=== PATIENT | female | born 1995 | race Caucasian/White ===

== ENCOUNTER 2023-03-23 20:09 | Outpatient (REF) | payer BC, OTHER, SELFPAY ==
[2023-03-29 14:18] LABS: Age Gdln ACOG Testing Note (.); IGP, rfx Aptima HPV ASCU Note (.)
== END 2023-03-23 20:10 | disposition home or self-care (01) ==
LOC: LAB 20:09
PROVIDERS: Visit Provider Obstetrics & Gynecology
DX: Z01.419 Encounter for gynecological examination (general) (routine) without abnormal findings (principal)
CPT/HCPCS: G0145

== ENCOUNTER 2023-05-13 08:50 | Outpatient (OUT) | payer BC, OTHER, SELFPAY | END 2023-05-13 08:51 | disposition home or self-care (01) | LOC: PST 08:53 | PROVIDERS: Visit Provider Obstetrics & Gynecology | DX: Z01.818 Encounter for other preprocedural examination (principal); N80.9 Endometriosis, unspecified; R10.2 Pelvic and perineal pain; N94.10 Unspecified dyspareunia ==

== ENCOUNTER 2023-05-20 07:26 | Day surgery (SDC) | payer BC, OTHER, SELFPAY ==
[2023-05-13 09:17] VITALS: BP 103/69; PULSE 95; RESP 14; TEMP 36.4; O2SAT 100; BMI 17.4
[2023-05-20] VITALS (18 sets, daily range): BP systolic 92–117; BP diastolic 61–79; PULSE 62–98; RESP 10–20; TEMP 36.4–36.9; O2SAT 96–100
[2023-05-20 07:42] LABS: Basophils Absolute Auto 0.1 10^3/uL (0.0-0.1); Basophils Percent Auto 1.1 % (0.2-2.0); Eosinophils Absolute Auto 0.4 10^3/uL (0.0-0.7); Eosinophils Percent Auto 6.7 % (0.9-7.0); Hematocrit 42.2 % (36.0-48.0); Hemoglobin 14.6 g/dL (12.0-16.0); Immature Granulocytes Abs Auto 0.01 10^3/uL (0.00-0.03); Immature Granulocytes Pct Auto 0.2 % (0.0-0.5); Lymphocytes Absolute Auto 1.9 10^3/uL (1.2-3.8); Lymphocytes Percent Auto 29.7 % (20.5-60.0); Mean Corpuscular HGB Conc 34.6 g/dL (29.9-35.2); Mean Corpuscular Hemoglobin 31.6 pg (26.7-34.0); Mean Corpuscular Volume 91.3 fL (81.0-99.0); Mean Platelet Volume 9.4 fL (9.5-13.5); Monocytes Absolute Auto 0.4 10^3/uL (0.3-0.8); Monocytes Percent Auto 6.5 % (1.7-12.0); Neutrophils Absolute Auto 3.5 10^3/uL (1.4-6.5); Neutrophils Percent Auto 55.8 % (43.0-75.0); Platelet Count 247 10^3/uL (150-450); Red Blood Count 4.62 10^6/uL (4.20-5.40); Red Cell Distribution Width 11.9 % (11.0-15.0); White Blood Count 6.3 10^3/uL (4.0-11.0)
[2023-05-20] MEDS: LACTATED RINGER'S SOLUTION 1,000 ML 50 ML IV (07:57)
[2023-05-20 08:09] LABS: HCG Quantitative <1 mIU/mL
--- NOTE | 2023-05-20 10:12 | P.ON_ITS ---
Brief Operative Note Date of procedure: 05/20/23 Pre-op diagnosis: pelvic pain Post-op diagnosis: same as pre-op Procedure: NAME OF PROCEDURE: [diagnostic laparoscopy ] PROCEDURE: The patient was taken back to the Operating Room where she was placed in dorsal lithotomy position after given general anesthesia. The patient was prepped and draped in normal sterile fashion. A sponge stick was placed into the patient's vagina. Attention was turned to the patient's abdomen, where a small umbilical incision was made. The fascia was tented using Florinda clamps and the fascia was entered sharply. Confirmation of intraabdominal placement of the 10 mm port was confirmed under direct visualization using a laparoscope. The patient's abdomen was then insufflated using CO2 gas with approximately 4 liters. A second port was placed left laterally, this was done under direct visualization with a 5 mm port. Survey of the patient's abdomen demonstrated normal liver and gallbladder. Survey of the patient's pelvic anatomy demonstrated normal appearing rt and lt ovary and tubes as well as normal appearing uterus. No endometrial implants could be noted, no evidence of any pelvic disease was seen, normal appearing pelvic cavity. All instruments were removed from the patient's abdomen. The patient's abdomen was deinsufflated of CO2 gas. The patient tolerated the procedure well. Sponge stick was removed from the patient's vagina. The maddie ent's infraumbilical fascia was closed using #0 Vicryl on a GI needle. The patient's skin was closed laterally and infraumbilically using 4-0 Vicryl. The patient tolerated the procedure well. Sponge, lap and needle counts were correct x 2. The patient was taken to Recovery Room in stable condition.Clips from prior surgery noted adhered to bladder, the clips were grasped and gently removed Anesthesia: KENYA Surgeon: Tony Brennan Student Outreach Coordinator: Hilda Ellison Estimated blood loss (mL): 5 Pathology: none sent Condition: stable Disposition: PACU
[2023-05-20] MEDS: HYDROCODONE/ACET 5-325 MG TABLET 1 TAB PO (10:37)
[2023-05-20] MEDS: HYDROMORPHONE HCL 0.5 MG/0.5 ML SYRINGE IV ×2 (10:46→10:56)
[2023-05-20] MEDS: LACTATED RINGER'S SOLUTION 1,000 ML 150 ML IV (12:10)
--- NOTE | 2023-05-20 12:18 | PC.NURSE ---
Patient upto BR and voids a few drops of urine. New bag of IV fluid hung.
== END 2023-05-20 12:37 | disposition home or self-care (01) ==
LOC: SURGOUT 07:26
PROVIDERS: Visit Provider Obstetrics & Gynecology
PROC: (CPT 840; principal; 2023-05-20 08:40)
DX: R10.2 Pelvic and perineal pain (principal); N80.9 Endometriosis, unspecified; N94.10 Unspecified dyspareunia
CPT/HCPCS: 49320; 36415; 84702; 85025; J1170; J2704

== ENCOUNTER 2024-03-26 20:18 | Outpatient (REF) | payer BC, SELFPAY ==
[2024-03-30 16:10] LABS: Age Gdln ACOG Testing Note (.); HPV Aptima Negative (Negative); IGP, Aptima HPV, rfx 16/18,45 Note (.)
== END 2024-03-26 20:19 | disposition home or self-care (01) ==
LOC: LAB 20:18
PROVIDERS: Visit Provider Obstetrics & Gynecology
DX: Z01.419 Encounter for gynecological examination (general) (routine) without abnormal findings (principal)
CPT/HCPCS: 88175

== ENCOUNTER 2025-05-27 13:23 | Outpatient (REF) | payer BC, SELFPAY ==
--- OUTSIDE RECORDS SUMMARY | 2025-05-27 09:50 | XMS_ITS | Encounter Summary ---
Author Organization [facility] Address [address] [place] [address] Care Team Providers Care Livestock Judging Coach Name Role Phone Unavailable Primary Care Provider Unavailabl e Reason for Visit * Reason Comments Gynecologic Exam Encounter Details Date Type Department Care Team (Late st Contact Info) Description 05/27/2025 9:50 AM EDT Office Visit [facility] [place] [facility] [address] [facility] [place] [phone] Tony Brennan DO [address] [facility] [place] [address] Well woman exam with routine gynecological exam; Mood changes Social History Tobacco Use Types Packs/Day Years Used Date Smoking Tobacco: Never Alcohol Use Standard Drinks/Week Comments Never 0 (1 standard drink = 0.6 oz pur e alcohol) Caffeine: 2-3 cups/day soda Comments No Sex and Gender Information Value Date Recorded Sex Assigned at Not on file Legal Sex Female 6:36 PM EDT Gender Identity Not on file Sexual Orientation Not on file documented as of this encounter Last Filed Vital Signs Vital Sign Reading Time Taken Comments Blood Pressure 98/58 05/27/2025 10:20 AM EDT Pulse - - Temperature - - Respiratory Rate - - Oxygen Saturation - - Inhaled Oxygen Concentration - - Weight 46.3 kg (102 lb) 05/27/2025 10:20 AM EDT Height - - Body Mass Index 19.27 01/28/2025 9:20 AM EDT documented in this encounter Progress Notes * Eloise Cruz NP - 05/27/2025 9:50 AM EDT Reason for Appointment: Patient ID: Leonor Villa is a 29 y.o. female who presents for Gynecologic Exam Patient presents today for Annual Exam. MEDICATIONS Current Outpatient Medications Medication Instructions citalopram (CELEXA) 20 mg, Oral, Daily ISOtretinoin (Accutane) 40 MG capsule spironolactone (ALDACTONE) 50 mg, Daily ALLERGIES Allergies[1] PROBLEMS Active Ambulatory Problems Diagnosis Date Noted Well woman exam with routine gynecological exam 03/26/2024 Mood changes 03/26/2024 Other acne 03/26/2024 Resolved Ambulatory Problems Diagnosis Date Noted No Resolved Ambulatory Problems Past Medical History: Diagnosis Date Abnormal Pap smear of cervix Benign cyst of left kidney Endometriosis Ovarian cyst Urinary tract infection HISTORY PAST MEDICAL HISTORY SOCIAL HISTORY Medical History[2] Social History Tobacco Use Smoking status: Never Smokeless tobacco: Not on file Substance Use Topics Alcohol use: Never Comment: Caffeine: 2-3 cups/day soda Drug use: Never FAMILY HISTORY Family History[3] SURGICAL HISTORY Surgical History[4] REVIEW OF SYSTEMS Review of Systems: Review of Systems Constitutional: Negative. HENT: Negative. Eyes: Negative. Respiratory: Negative. Cardiovascular: Negative. Gastrointestinal: Negative. Genitourinary: Negative. Musculoskeletal: Negative. Skin: Negative. Neurological: Negative. All other systems reviewed and are negative. Hematological: Negative. Endocrine: Negative. Allergic/Immunologic: Negative. OBJECTIVE Objective: Physical Exam Constitutional: Appearance: Normal appearance. She is well-developed. Genitourinary: Vulva normal. Breasts: Breasts are soft. Right: Normal. Left: Normal. Cardiovascular: Rate and Rhythm: Normal rate and regular rhythm. Pulmonary: Effort: Pulmonary effort is normal. Breath sounds: Normal breath sounds. Abdominal: General: Bowel sounds are normal. There is no distension. Palpations: Abdomen is soft. Tenderness: There is no abdominal tenderness. There is no guarding or rebound. Musculoskeletal: General: No swelling. Normal range of motion. Right lower leg: No edema. Left lower leg: No edema. Neurological: Mental Status: She is alert and oriented to person, place, and time. Skin: General: Skin is warm and dry. Psychiatric: Mood and Affect: Mood normal. Behavior: Behavior normal. Vitals and nursing note reviewed. Exam conducted with a cumulative effects analyst present. Vitals: Estimated body mass index is 19.27 kg/m?? as calculated from the following: Height as of 01/28/25: 5' 1 . Weight as of this encounter: 102 lb. BP: 98/58 No LMP recorded. Assessment/Plan ICD-10-CM 1. Well woman exam with routine gynecological exam Z01.419 Pap Smear HPV DNA probe, amplified 2. Mood changes R45.86 citalopram (CeleXA) 20 MG tablet Annual Exam: Patient presents today for an annual exam. Patient states she is doing well and has no complaints. Pap was obtained without difficulty. Patient reports increased agitation and would like to discuss her Celexa dosing. We will increase the dose to 30 mg and she will reach out to discuss if she is having any further anxiety/agitation. Orders Placed This Encounter Procedures HPV DNA probe, amplified Follow Up: Patient is to return in one year for annual unless needed otherwise. Documented by Eloise Cruz NP on behalf of: Tony Brennan DO [1] No Known Allergies [2] Past Medical History: Diagnosis Date Abnormal Pap smear of cervix Benign cyst of left kidney 2 small cysts on left kidney Endometriosis Ovarian cyst Urinary tract infection [3] Family History Problem Relation Name Age of Onset Sleep apnea Other Diabetes Other Cancer Other No Known Problems Daughter Breast cancer Maternal Grandmother Florina Breast cancer Paternal Grandmother Alexsandra lala Diabetes Paternal Grandmother Alexsandra lala [4] Past Surgical History: Procedure Laterality Date CERVICAL BIOPSY W/ LOOP ELECTRODE EXCISION 09/2016 LEEP LAPAROSCOPY DIAGNOSTIC / BIOPSY / ASPIRATION / LYSIS 05/20/2023 WISDOM TOOTH EXTRACTION wisdom teeth documented in this encounter Miscellaneous Notes * Addendum Note - Emily Monteiro LPN - 05/27/2025 9:50 AM EDTAddended by: EMILY MONTEIRO on: 05/27/2025 12:28 PM Modules accepted: Orders documented in this encounter Plan of Treatment Upcoming Encounters Date Type Department Care Team (Late st Contact Info) Description 06/05/2026 8:30 AM EDT Procedure Visit [facility] [address] [place] [address] [place] [phone] Tony Brennan DO [address] [place] [address] [place] [address] Scheduled Orders Name Type Priority Associated Diagnoses Orde r Schedule Pap Smear Pathology and Cytology Routine Well woman exam with routine gynecological exam Ordered: 05/27/2025 HPV DNA probe, amplified Microbiology Routine Well woman exam with routine gynecological exam Ordered: 05/27/2025 documented as of this encounter Visit Diagnoses Diagnosis Well woman exam with routine gynecological exam Routine gynecological examination Mood changes Unspecified episodic mood disorder documented in this encounter
--- OUTSIDE RECORDS SUMMARY | 2025-05-27 13:28 | XMS_ITS | Encounter Summary ---
Author Organization [facility] Address [address] [place] [address] Care Team Providers Care Photography Colorist Name Role Phone Sharon Moreno MD Primary Care Provider [phone] Source Comments In the event this information is protected by the Federal Confidentiality of Alcohol and Drug AbusePatient Records regulations: The Federal rules restrict any use of the information to criminally investigate or prosecute any alcohol or drug abuse patient.[facility] Encounter Details Date Type Department Care Team (Late st Contact Info) Description 11/25/2018 Patient Msg Radiology [address] [phone] Provider, [facility] Appointment Cancellation Request Social History Tobacco Use Types Packs/Day Years Used Date Smoking Tobacco: Never Smokeless Tobacco: Never Alcohol Use Standard Drinks/Week Comments No 0 (1 standard drink = 0.6 oz pur e alcohol) Comments No Sex and Gender Information Value Date Recorded Sex Assigned at Not on file Legal Sex Female 9:51 AM EST Gender Identity Not on file Sexual Orientation Not on file documented as of this encounter Plan of Treatment Not on file documented as of this encounter Visit Diagnoses Not on filedocumented in this encounter Care Teams Photography Colorist Relationship Specialty Start Date End Date Sharon Moreno MD [address] [place] [address] PCP - General Family Medicine 03/20/14 documented as of this encounter
--- OUTSIDE RECORDS SUMMARY | 2025-05-27 13:28 | XMS_ITS | Encounter Summary ---
Author Organization [facility] Address [address] [place] [address] Care Team Providers Care Press Set Up Person Name Role Phone Clover Hudson MD Primary Care Provider [phone]- [phone] Sharon Moreno MD Primary Care Provider [phone] Source Comments In the event this information is protected by the Federal Confidentiality of Alcohol and Drug AbusePatient Records regulations: The Federal rules restrict any use of the information to criminally investigate or prosecute any alcohol or drug abuse patient.[facility] Encounter Details Date Type Department Care Team (Latest Contact Info) Description 03/05/2003 Prob Sum Review Provider, [facility] Social History Tobacco Use Types Packs/Day Years Used Date Smoking Tobacco: Never Assessed Comments No Sex and Gender Information Value Date Recorded Sex Assigned at Not on file Legal Sex Female 9:51 AM EST Gender Identity Not on file Sexual Orientation Not on file documented as of this encounter Plan of Treatment Not on file documented as of this encounter Visit Diagnoses Not on filedocumented in this encounter Care Teams Press Set Up Person Relationship Specialty Start Date End Date Clover Hudson MD [address] [facility] [address] [id number] PCP - General 08/14/02 03/19/14 Sharon Moreno MD [address] [place] [address] PCP - General Family Medicine 03/20/14 documented as of this encounter
--- OUTSIDE RECORDS SUMMARY | 2025-05-27 13:28 | XMS_ITS | Encounter Summary ---
Author Organization [facility] Address [address] [place] [address] Care Team Providers Care Web Analytics Specialist Name Role Phone Sharon Moreno MD Primary Care Provider [phone] Source Comments In the event this information is protected by the Federal Confidentiality of Alcohol and Drug AbusePatient Records regulations: The Federal rules restrict any use of the information to criminally investigate or prosecute any alcohol or drug abuse patient.[facility] Encounter Details Date Type Department Care Team (Late st Contact Info) Description 11/25/2018 Patient Msg Radiology [address] [phone] Provider, [facility] Appointment Cancellation Request Social History [...] on filedocumented in this encounter Care Teams Web Analytics Specialist Relationship Specialty Start Date End Date Sharon Moreno MD [address] [place] [address] PCP - General Family Medicine 03/20/14 documented as of this encounter
--- OUTSIDE RECORDS SUMMARY | 2025-05-27 13:28 | XMS_ITS | Encounter Summary ---
Author Organization [facility] Address [address] [place] [address] Care Team Providers Care Operations Support Manager Name Role Phone Unavailable Primary Care Provider Unavailabl e Encounter Details Date Type Department Care Team (Late st Contact Info) Description 11/20/2024 Abstract [facility] [address] [place] [phone] William Hollis DO [address] [place] [address] Social History Tobacco Use Types Packs/Day Years [...] as of this encounter Plan of Treatment Upcoming Encounters Date Type Department Care Team (Late st Contact Info) Description 06/05/2026 8:30 AM EDT Procedure Visit [facility] [place] [facility] [address] [place] [phone] Tony Brennan DO [address] [facility] [place] [address] documented as of this encounter Visit Diagnoses Not on filedocumented in this encounter
--- OUTSIDE RECORDS SUMMARY | 2025-05-27 13:28 | XMS_ITS | Encounter Summary ---
Author Organization [facility] Address [address] [place] [address] Care Team Providers Care Resident Programs Assistant Name Role Phone Unavailable Primary Care Provider Unavailabl e Encounter Details Date Type Department Care Team (Late st Contact Info) Description 11/15/2024 Abstract [facility] [address] [place] [phone] William Hollis DO [address] [place] [address] Social History Tobacco Use Types [...] EDT Procedure Visit [facility] [place] [facility] [address] [place] [phone] Tony Brennan DO [address] [facility] [place] [address] documented as of this encounter Visit Diagnoses Not on filedocumented in this encounter
--- OUTSIDE RECORDS SUMMARY | 2025-05-27 13:28 | XMS_ITS | Clinical Summary ---
Author Organization [facility] Address [address] [place] [address] Care Team Providers Care Horticultural Services Supervisor Name Role Phone Unavailable Primary Care Provider Unavailabl e Allergies No known active allergies Medications spironolactone (Aldactone) 50 MG tablet Take 50 mg by mouth Daily 3 Active ISOtretinoin (Accutane) 40 MG capsule 5 Active citalopram (CeleXA) 20 MG tabletIndicatio ns:Mood changes Take 1 tablet (20 mg) by mouth Daily 30 tablet 3 5 09/24/19 26 Active citalopram (CeleXA) 10 MG tabletIndicatio ns:Mood changes Take 1 tablet (10 mg) by mouth Daily 30 tablet 11 5 05/27/20 26 Active citalopram (CeleXA) 20 MG tabletIndicatio ns:Mood changes Take 1 tablet (20 mg) by mouth Daily 30 tablet 3 5 05/27/20 25 Discontinu ed(Reorder ) Active Problems Problem Noted Date Diagnosed Date Well woman exam with routine gynecological exam 03/26/2024 Mood changes 03/26/2024 Other acne 03/26/2024 Encounters Date Type Department Care Team Description 05/27/2025 9:50 AM EDT Office Visit [facility] [address] [place] [address] Tony Brennan, DO Well woman exam with routine gynecological exam; Mood changes 05/27/2025 Bamboo flowsheet [facility] [address] [place] [address] Tony Brennan DO 04/09/2025 Orders Only [facility] [address] [place] [address] Raisa Vazquez LPN from Last 3 Months Family History Medical History Relation Name Comments No Known Problems Daughter Breast cancer Maternal Grandmother Florina Cancer Other Diabetes Other Sleep apnea Other Breast cancer Paternal Grandmother Alexsandra lala Diabetes Paternal Grandmother Alexsandra lala Relation Name Status Comments Daughter Alive Maternal Grandmother Florina Alive Other Paternal Grandmother Alexsandra lala Alive Social History Tobacco Use Types Packs/Day Years Used Date Smoking Tobacco: Never Tobacco Cessation:Counseling Given: Not Answered Alcohol Use Standard Drinks/Week Comments Never 0 (1 standard drink = 0.6 oz pur e alcohol) Caffeine: 2-3 cups/day soda Comments No Sex and Gender Information Value Date Recorded Sex Assigned at Not on file Legal Sex Female 6:36 PM EDT Gender Identity Not on file Sexual Orientation Not on file Last Filed Vital Signs Vital Sign [place] Time Taken Comments Blood Pressure 98/58 05/27/2025 10:20 AM EDT Pulse - - Temperature - - Respiratory Rate - - Oxygen Saturation - - Inhaled Oxygen Concentration - - Weight 46.3 kg (102 lb) 05/27/2025 10:20 AM EDT Height 154.9 cm (5' 1 ) 01/28/2025 9:20 AM EDT Body Mass Index 19.27 01/28/2025 9:20 AM EDT Plan of Treatment Upcoming Encounters Date Type Department Care Team (Late st Contact Info) Description 06/05/2026 8:30 AM EDT Procedure Visit [facility] [address] [place] [phone] Tony Brennan DO [address] [place], [place] [phone] Insurance [employer] [facility]
--- OUTSIDE RECORDS SUMMARY | 2025-05-27 13:28 | XMS_ITS | Encounter Summary ---
Author Organization [facility] Address [address] [place] [address] Care Team Providers Care Feed Mill Manager Name Role Phone Unavailable Primary Care Provider Unavailabl e Encounter Details Date Type Department Care Team (Late Contact Info) Description 05/27/2025 Bamboo flowsheet [facility] [address] Tony Brennan DO [address] [place], [place] [address] Social History Tobacco Use Types Packs/Day Years [...] Description 06/05/2026 8:30 AM EDT Procedure Visit [facility] [address] Tony Brennan DO [address] [place], [facility] documented as of this encounter Visit Diagnoses Not on filedocumented in this encounter
--- OUTSIDE RECORDS SUMMARY | 2025-05-27 13:28 | XMS_ITS | Encounter Summary ---
Author Organization [facility] Address [address] [place] [address] Care Team Providers Care Stoker Installation Mechanic Name Role Phone Unavailable Primary Care Provider Unavailabl e Encounter Details Date Type Department Care Team (Late st Contact Info) Description 12/10/2024 Abstract [facility] [address] [place] [phone] William Hollis DO [address] [place] [address] Social History Tobacco Use Types [...] EDT Procedure Visit [facility] [place] [facility] [address] [facility] [place] [phone] Tony Brennan DO [address] [facility] [address] [place], [place] [phone] documented as of this encounter Visit Diagnoses Not on filedocumented in this encounter
--- OUTSIDE RECORDS SUMMARY | 2025-05-27 13:28 | XMS_ITS | Encounter Summary ---
Author Organization [facility] Address [address] [place] [address] Care Team Providers Care Electrical Engineering Draftsperson Name Role Phone Unavailable Primary Care Provider Unavailabl e Encounter Details Date Type Department Care Team (Late st Contact Info) Description 12/06/2024 Abstract [facility] [address] [place] [phone] William Hollis DO [address] [place] [address] Social History Tobacco Use Types [...] [address] [facility] [place] [phone] Tony Brennan DO [address] [facility] [address] [place], [place] [id number] documented as of this encounter Visit Diagnoses Not on filedocumented in this encounter
--- OUTSIDE RECORDS SUMMARY | 2025-05-27 13:28 | XMS_ITS | Encounter Summary ---
Author Organization [facility] Address [address] [place] [address] Care Team Providers Care Wholesale Account Executive Name Role Phone Unavailable Primary Care Provider Unavailabl e Encounter Details Date Type Department Care Team (Late Contact Info) Description 04/09/2025 Orders Only [facility] [place] [address] Raisa Vazquez LPN [address] [facility] [address] [facility] Social History Tobacco Use Types Packs/Day Years [...] 8:30 AM EDT Procedure [facility] [place] [address] Tony Brennan DO [address] [facility] [address] [place], [place] [phone] documented as of this encounter Procedures Procedure Name Priority Date/Time Associated Diagnosis Comments PAP SMEAR Routine 03/26/2024 12:00 AM EDT documented in this encounter Results * Pap Smear (03/26/2024 12:00 AM EDT) Swab Cervical swab / Unknown us Anu Nurse [facility] LAB CYTOLOGY ORDERABLES Final Result EXTERNAL LAB documented in this encounter Visit Diagnoses Not on filedocumented in this encounter
--- OUTSIDE RECORDS SUMMARY | 2025-05-27 13:28 | XMS_ITS | Clinical Summary ---
Author Organization [facility] Address [address] [place] [id number] Care Team Providers Care Coal [employer]er Name Role Phone Sharon Mroeno MD Primary Care Provider [phone] Allergies No known active allergies Medications * This document contains information received from the source organization and may not represent a complete record from that organization. norethindrone-e. estradiol-iron (, ORAL) Take 1 tablet by mouth once daily. Active sertraline (ZOLOFT) 25 mg tablet Take 1 tablet by mouth once daily. 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 10/26/2002 Renal cyst Family History Medical History Relation Comments Sleep Apnea Father Breast Cancer Maternal Grandmother Liver Cancer Maternal Grandmother Breast Cancer Paternal Grandmother Diabetes Paternal Grandmother Hypertension Paternal Grandmother Relation Status Comments Father Alive Maternal Grandmother Alive Mother Alive Paternal Grandmother Alive Social History Tobacco Use Types Packs/Day Years Used Date Smoking Tobacco: Never Smokeless Tobacco: Never Tobacco Cessation:Counseling Given: No Alcohol Use Standard Drinks/Week Comments No 0 (1 standard drink = 0.6 oz pur e alcohol) Area Deprivation Index Answer Date Talat rded National Score (1-100), lower number is lower ri sk Not on file 07/13/2020 State Score (1-10), lower number is lower risk N ot on file 07/13/2020 Data from: https://www.neighborhoodatlas.medicine.[facility].edu/. Last address used for calculation Not on file 07/13/2020 Comments No Sex and Gender Information Value Date Recorded Sex Assigned at Not on file Legal Sex Female 9:51 AM EST Gender Identity Not on file Sexual Orientation Not on file Last Filed Vital Signs Vital Sign Reading Time Taken Comments Blood Pressure 110/74 12/01/2018 12:38 PM EDT Pulse 95 12/01/2018 12:38 PM EDT Temperature 37.2 C (98.9 F) 10/28/2017 10:38 AM EDT Respiratory Rate - - Oxygen Saturation - - Inhaled Oxygen Concentration - - Weight 44.3 kg (97 lb 9.6 oz) 12/01/2018 12:38 P M EDT Height 154.9 cm (5' 1 ) 12/01/2018 12:38 PM EDT Body Mass Index 18.44 12/01/2018 12:38 PM EDT Plan of Treatment Health Maintenance Due Date Last Done Comments Anxiety Screening 12/26/2011 Depression Screening 12/26/2011 HIV Screening 12/26/2011 Hepatitis C Screening 12/26/2011 DTaP,Tdap,Td Vaccine (1 - Tdap) 2012 Hepatitis B Vaccine (1 of 3 - 19+ 3-dose series) 2012 Cervical Cancer Screening 2014 HPV Vaccine (1 - 3-dose SCDM series) 2020 Covid-19 Vaccine ( - 2024- season) 2025 Influenza Vaccine (#1) 2025 04/26/2018, 2016 Insurance [place] C[place] PPO OOS BLUE CARD PPO OOS Member Subscriber Plan / Payer (Ef fective 2018-Present) Name:Leonor Villa Relation to Subscriber:Spouse Name:DEVAUGHN VILLA Date of :1993 (Home) Address: [address] [place] [id number] Payer ID:[id number] (NAIC) Group ID:Not on file Type:PPO Address: [id number] MEDICAID Care Teams Coal Miner Relationship Specialty Start Date End Date Sharon Moreno MD [address] [place] [address] PCP - General Family Medicine 03/20/14
--- OUTSIDE RECORDS SUMMARY | 2025-05-27 13:32 | XMS_ITS | CCD ---
Author Organization [facility] Care Team Providers Care Manager Intranet Name Role Phone LELE DWYER Attending Unavailable AGUS, DR BISHOP Attending Unavailable AGUS, DR BISHOP Consulting Unavailable AGUS, DR BISHOP Admitting Unavailable REQUEST, DR CRAWFORD LISTED Primary Care Unavaila TO Salazar Primary Care Physician Indigo LOPEZ Unavailable BILLIE DELGADO Attending Unavailable BILLIE DELGADO Admitting Unavailable NONE, XXXX Primary Care Physician Unavailab le Unavailable Primary Care Provider [facility] Unavailable BILLIE DELGADO Attending Unavailable BILLIE DELGADO Admitting Unavailable BILLIE DELGADO Attending Unavailable BILLIE DELGADO Admitting Unavailable Rai Flanagan Attending Unavailable POCOS, SITA Ordaz Attending Unavailable POCOS, SITA Ordaz Referring Unavailable POCOS, SITA Ordaz Referring Unavailable POCOS, SITA Ordaz Attending Unavailable POCOS, SITA Ordaz Referring Unavailable POCOS, SITA Ordaz Referring Unavailable POCOS, SITA Ordaz Attending Unavailable POCOS, SITA Ordaz Referring Unavailable POCOS, SITA Ordaz Referring Unavailable POCOS, SITA Ordaz Attending Unavailable POCOS, SITA Ordaz Referring Unavailable POCOS, SITA Ordaz Attending Unavailable LISET BRENNAN Attending Unavailable Navi Burger Attending Unavailable Navi Burger Admitting Unavailable Navi Burger Attending Unavailable Sita Hayes Attending Unavailable MD BILLIE DELGADO Admitting UnavailMD BILLIE Vaughn Attending Unavailcyn muro Medications Current Medications Medication Drug Class(es) Dates Sig (Normalized) Sig (Original) acetaminophen 325 mg / oxyCODONE hydrochloride 5 mg oral tablet (2 sources) Opioid Agonist Start: 11-09-2024 End: 11-12-2024 Percocet 5 mg-325 mg oral tablet 1 tab(s), Oral, q6hr as needed for pain for 3 day(s), 15 tab(s), Refill(s) 0, [id number], 154, cm, 11/09/24 11:24:00 EDT, Height/Length Dosing, 44, kg, 11/09/24 11:24:00 EDT, Weight Dosing Start Date: 11/09/24 Stop Date: 11/12/24 Status: Ordered Quantity: 15.0 Unit: tab(s) Repeat number: 1 Indication: Fracture of unspecified phalanx of unspecified finger, initial encounter for closed fracture Start: 04-19-2023 End: 04-21-2023 Percocet 5 mg-325 mg oral ta blet 1 tab(s), Oral, q6hr for 2 day(s), 8 tab(s), Refill(s) 0, [id number], 154, cm, 04/19/23 12:44:00 EDT, Height/Length Dosing, 43, kg, 04/19/23 12:44:00 EDT, Weight Dosing Start Date: 04/19/23 Stop Date: 04/21/23 Status: Ordered amoxicillin 875 mg / clavulanate 125 mg oral tablet (1 source) Penicillin-class Antibacterial Start: 04-11-2025 End: 04-21-2025 Augmentin 875 mg-125 mg Tab 1 tab(s), Oral, q12hr for 10 day(s), 20 tab(s), Refill(s) 0, before or with meals and snacks, [id number], 154, cm, 04/11/25 9:08:00 EDT, Height/Length Dosing, 45.2, kg, 04/11/25 9:08:00 EDT, Weight Dosing Start Date: 04/11/25 Stop Date: 04/21/25 Status: Ordered Quantity: 20.0 Unit: tab(s) Repeat number: 1 Indications: Acute suppurative otitis media without spontaneous rupture of ear drum, bilateral; citalopram 10 mg oral tablet (20 sources) Serotonin Reuptake Inhibitor Start: 05-27-2025 End: 05-27-2026 take 1 tablet by mouth once daily citalopram (CeleXA) 10 MG tablet Indications: Mood changes Take 1 tablet (10 mg) by mouth Daily 30 tablet 11 05/27/2025 05/27/2026 Active Start: 05-07-2024 End: 09-24-2025 take 1 tablet by mouth once daily citalopram (CeleXA) 20 MG tablet Indications: Mood changes Take 1 tablet (20 mg) by mouth Daily 30 tablet 3 05/27/2025 09/24/2025 Active Start: 03-26-2024 End: 05-07-2024 take 1 tablet by mouth once daily citalopram (CeleXA) 10 MG tablet Indications: Mood changes Take 1 tablet (10 mg) by mouth Daily 30 tablet 3 03/26/2024 05/07/2024 Discontinued ISOtretinoin 40 mg oral capsule (8 sources) Retinoid Start: 12-11-2024 ISOtretinoin (Accutane) 40 MG capsule 12/11/2024 Active methocarbamol 500 mg oral tablet (1 source) Muscle Relaxant Start: 04-19-2023 End: 04-26-2023 take 2 tablets by mouth four times daily Robaxin 500 mg Tab 1,000 mg = 2 tab(s), Oral, QID, X 7 day(s), # 56 tab(s), Refills(s) 0, Pharmacy: [id number], 154, cm, 04/19/23 12:44:00 EDT, Height/Length Dosing, 43, kg, 04/19/23 12:44:00 EDT, Weight Dosing Start Date: 04/19/23 Stop Date: 04/26/23 Status: Ordered naproxen 500 mg oral tablet (4 sources) Nonsteroidal Anti-inflammatory Drug Start: 04-19-2023 take 1 tablet by mouth twice daily as needed for pain naproxen 500 mg Tab 500 mg = 1 tab(s), Oral, BID, PRN for pain, # 20 tab(s), Refills(s) 0, Pharmacy: [id number], 154, cm, 04/19/23 12:44:00 EDT, Height/Length Dosing, 43, kg, 04/19/23 12:44:00 EDT, Weight Dosing Start Date: 04/19/23 Status: Ordered Quantity: 20.0 Unit: tab(s) Repeat number: 1 spironolactone 50 mg oral tablet (17 sources) Aldosterone Antagonist Start: 12-18-2022 take 1 tablet by mouth once daily spironolactone (Aldactone) 50 MG tablet Take 50 mg by mouth Daily 12/18/2022 Active sucralfate 100 mg/ml oral suspension (5 sources) Aluminum Complex Start: 07-10-2021 take 1 g by mouth four times daily Carafate 1 g/10 mL Susp-Oral 1 gram = 10 mL, Oral, QID, # 280 mL, Refills(s) 0, Pharmacy: [id number], 158, cm, 07/10/21 10:15:00 EST, Height/Length Dosing, 42, kg, 07/10/21 10:15:00 EST, Weight Dosing Start Date: 07/10/21 Status: Ordered Quantity: 280.0 Unit: mL Repeat number: 1 Completed/Discontinued Medications Medication Drug Class(es) Dates Sig (Normalized) Sig (Original) cephalexin 500 mg oral capsule (2 sources) Cephalosporin Antibacterial Start: 11-09-2024 take 1 capsule by mouth three times daily Keflex 500 mg Cap 500 mg = 1 cap(s), Oral, TID, Take one capsule by mouth three times a day for ten days, # 30 cap(s), Refills(s) 0, Pharmacy: [id number], 154, cm, 11/09/24 11:24:00 EDT, Height/Length Dosing, 44, kg, 11/09/24 11:24:00 EDT, Weight Dosing Start Date: 11/09/24 Status: Ordered Quantity: 30.0 Unit: cap(s) Repeat number: 1 10 ml lidocaine hydrochloride 10 mg/ml injection (4 sources) Antiarrhythmic, Amide Local Anesthetic Start: 11-09-2024 End: 11-09-2024 lidocaine (Xylocaine) 1 % injection 8 mL Start: 11-09-2024 End: 11-09-2024 8 mL, Once PRN Procedure, [facility] on Tue11/09/24 at 1511, For 1 dose traMADol hydrochloride 50 mg oral tablet (4 sources) Opioid Agonist Start: 11-09-2024 End: 11-19-2024 take 1 tablet by mouth every six hours for pain, then take 2 tablets by mouth every six hours for pain traMADol (Ultram) 50 MG tablet Indications: Closed nondisplaced fracture of distal phalanx of left little finger, initial encounter , Pain of finger of left hand May take 1 tablet (50 mg) by mouth every 6 (six) hours if needed for severe pain. May also take 2 tablets (100 mg) every 6 (six) hours if needed for severe pain. Do all this for 7 days. 20 tablet 11/09/2024 11/19/2024 Discontinued tretinoin 0.5 mg/ml topical cream (10 sources) Retinoid Start: 03-31-2023 End: 12-05-2024 tretinoin (Retin-A) 0.05 % cream Apply 1 application topically at bedtime 03/31/2023 12/05/2024 Discontinued Problems Active Problems Problem Classification Problem Date Documented Date Episodic/Chronic Fracture of upper limb (13 sources) Closed fracture of phalanx of finger; Translations: [Fracture of unspecified phalanx of unspecified finger, initial encounter for closed fracture] Onset: 11-09-2024 Episodic Genitourinary congenital anomalies (1 source) Congenital multiple renal cysts; Translations: [Congenital multiple renal cysts] Onset: 12-01-2018 Chronic Mood disorders (20 sources) Disturbance in mood; Translations: [Emotional lability] Onset: 03-26-2024 03-26-2024 Episodic Other connective tissue disease (2 sources) Pain in finger of left hand; Translations: [Pain in left finger(s)] 11-09-2024 Episodic Other screening for suspected conditions (not mental disorders or infectious disease) (4 sources) Encounter for screening for malignant neoplasm of cervix; Translations: [ENC SCREENING MALIG NEOPLASM CERV] Onset: 03-03-2022 Episodic Other upper respiratory infections (1 source) Acute pharyngitis; Translations: [Acute pharyngitis, unspecified] Onset: 05-24-2025 Episodic Otitis media and related conditions (1 source) Acute suppurative otitis media without spontaneous rupture of ear drum; Translations: [Acute suppurative otitis media without spontaneous rupture of ear drum, bilateral] Onset: 04-11-2025 Episodic Spondylosis; intervertebral disc disorders; other back problems (1 source) Torticollis; Translations: [Torticollis] Onset: 04-19-2023 Episodic Substance-related disorders (7 sources) Smoker 12-11-2016 Chronic Comment on above: Added secondary to d ocumentation in Social History. Past or Other Problems Problem Classification Problem Date Documented Da te Episodic/Chronic Other skin disorders (17 sources) Acne; Translations: [Other acne] Onset: 03-26-2024 03-26-2024 Episodic Unclassified (7 sources) Onset: 02-05-2015 Resolved: 01-07-2016 01-16-2016 Results Test Name Value Interpretation Reference Range Facility Ambulatory Visit Summaryon 1 Ambulatory Visit Summary Ambulatory Visit Summary LUIS ENRIQUE VILLA :1995 Visit Date:05/24/2025 Ambulatory Visit Instructions Your Diagnosis Sore throat Your Care Team Attending Physician - Navi Burger PA-C Primary Care Physician - NONE, XXXX This Is Your Medications List Contact prescribing physician if questions or concerns citalopram (citalopram 20 mg Tab) Procedures Performed wisdom teeth. Discharge Vitals Temperature (Oral) 36.8 ???C Heart Rate (Peripheral) 94 Blood Pressure 112/70 Height 154 cm Height 61 in Weight 46.2 kg Weight 101.853 lb BMI 19.48 What to do next You Need to Schedule the Following Appointments Follow Up with NONE, XXXX When: Medications What When Instructions Unchanged citalopram (citalopram 20 mg Tab) Contact prescribing physician if questions or concerns Allergies No Known Allergies Problems Ongoing - Any problem that you are currently receiving treatment for. Smoker Historical - Any problem that you are no longer receiving treatment for. Patient Survey You may receive a survey via text or e-mail asking about your office visit. Please share your experience with us by completing your survey. We appreciate your feedback and thank you for choosing us for your care. Education Materials Rapid Strep Test Why am I having this test? A rapid strep test is used to check for strep throat. Strep throat is a bacterial infection caused by the bacteria Streptococcus pyogenes. A rapid strep test is the quickest way to check if these bacteria are causing your sore throat. You may have this test if: ??? You have throat pain or neck swelling and tenderness. ??? You have a fever. ??? You have a red throat with yellow or white spots. ??? You experience loss of appetite. ??? You have trouble breathing or painful swallowing. ??? You have a rash. ??? You are dehydrated. The test can be done at your health care provider's office. Results are usually ready in about 20 minutes. What is being tested? This test checks for the presence of the Streptococcus pyogenes bacteria. What kind of sample is taken? This test requires a sample of fluid from the back of your throat and tonsils. Your health care provider may hold down your tongue with a tongue depressor and use a swab to collect the sample. Your health care provider may collect a second sample at the same time. The second sample may be used for a throat culture. ??? In a culture test, the sample is combined with a substance that encourages bacteria to grow. It takes longer to get the results of the throat culture test, but they are more accurate. ??? A culture test can confirm the results from a rapid strep test, or it may show that the results were wrong. How are the results reported? Your test results will be reported as either positive or negative for the bacteria that cause strep throat. What do the results mean? Talk with your health care provider about what your results mean. In some cases, your health care provider may do more testing to confirm the results. If the result of your rapid strep test is negative, it means that: ??? It is likely that you do not have strep throat. ??? A virus may be causing your sore throat. If the result of your rapid strep test is positive, it means that: ??? It is likely that you do have strep throat. ??? You may have to take antibiotic medicine. Talk with your health care provider about what your results mean. Your health care provider may do a throat culture to confirm the results of the rapid strep test. ??? The throat culture can also identify the different strains of bacteria that are present. Questions to ask your health care provider Ask your health care provider, or the department that is doing the test: ??? When will my results be ready? How will I get my results? What are my treatment options? What other tests do I need? What are my next steps? Summary ??? A rapid strep test is used to check for strep throat. Strep throat is a bacterial infection caused by the bacteria Streptococcus pyogenes. A rapid strep test is the quickest way to check if these bacteria are causing your sore throat. ??? The test can be done at your health care provider's office. Results are usually ready in about 20 minutes. ??? This test requires a sample of fluid from the back of your throat and tonsils. Your health care provider may hold down your tongue with a tongue depressor and use a swab to collect the sample. ??? Your test results will be reported as either positive or negative for the bacteria that cause strep throat. This information is not intended to replace advice given to you by your health care provider. Make sure you discuss any questions you have with your health care provider. Document Revised: 11/17/2021 Document Reviewed: (more content not included)... [facility] Family Medicine Office/Clini c Noteon 05-24-2025 Family Medicine Office/Clinic Note Family Medicine Office/Clinic Note Chief Complaint ear pain, sore throat HPI Staff 29 year old female presents with bilateral ear pain- popping/feels like fluid is in her ears. left is worse. sore throat, feels dry. chills/sweating Onset: sore throat for 2 days. ear pain for 3-4 days exposure to strep throat History of Present Illness I have reviewed and verified the staff HPI to be accurate for this encounter. Portions of this record have been created with voice recognition software. Occasional wrong-word or ???[id number]-[id number]??? substitutions may have occurred due to the inherent limitations of voice recognition software. 29 yo female presents today with cc of ear pain, and sore throat. Patient states ears been bothering her over the past 3 to 4 days duration and sore throat has been pretty bad over the last 2 days. 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 States she has kids at home have been off-and-on sick with cold-like symptoms but have not complained of sore throat. Patient denies cough. States that he does cough is dry, minor and hurts her throat more than anything. States the left ear pain is worse compared to the right denies muffled hearing difficulty hearing or drainage. No runny stuffy nose or congestion prior to ear pain onset. No fever or chills but states some bodyaches today. Denies headache. Denies any nausea vomiting diarrhea or abdominal pain. She has no other concerns at this time. Review of Systems PHQ Score Initial Depression Screen Score: 0 SCORE ROS negative unless otherwise stated in HPI. Physical Exam Vitals & Measurements T: 36.8 ???C(Oral) HR: 94(Peripheral) BP: 112/70 SpO2: 98% HT: 61 in HT: 154 cm WT: 101.853 lb WT: 46.2 kg BMI: 19.48 General:Well developed, well nourished, in no acute distress Eyes:Bilateral conjunctiva wnl, no injection Ears:Bilateral TMs are wnl. No erythema or bulging. Bilateral external auditory canals are wnl no erythema or edema. Nose:mild nasal mucosa inflammation and edema no drainage, deformity, or lesion Mouth:moist mucous membranes. Bilateral tonsillar erythema, without acute edema, or exudative lesions. No signs of peritonsillar abscess. No trismus or drooling Neck:no adenopathy Lungs:Lung sounds are clear bilaterally. No wheezing, rhonchi, or crackles on exam. Cardio:S1, S2, regular rhythm. No murmurs, gallops, or rubs. Abdomen:not assessed Musculoskeletal:not assessed Extremity:not assessed Neurologic:not assessed Skin:not assessed Mental Status:Alert and oriented x3. Normal mood and affect Assessment/Plan Patient is in agreement to rapid strep and culture. Discussed Flonase in regards to bilateral ear discomfort no signs of ear infection at this time should help with eustachian tube dysfunction patient has Flonase at home does not require prescription understands 1 spray both and they are twice daily x 7 days duration. Rapid strep is negative will send for culture to confirm she does not have strep a patient understands that no news is good news if she does not hear back from us a strep culture is negative if it comes back positive she would need antibiotics discussed symptoms are most likely viral in nature to continue fluids rest supportive management to follow closely with PCP or return if needed. Patient agrees and understands plan. 1. Sore throat (J02.9: Acute pharyngitis, unspecified) Rapid strep -. Given exam will send strep cx to confirm. No news is good news, if you do not hear from us, strep culture was Negative. If any GAS growth, will rx appropriate antibiotic and notify you. Discussed otherwise consistent with viral illness, typical duration 7-14 days. Fluids/rest, PRN tylenol/ibuprofen for pain and/or fever. May use salt water gargles and otc lozenges for pain. Fu with PCP if cx negative and not improving over next 3-5 days. Seek medical attention immediately for any increased difficulty swallowing, opening mouth, or difficulty managing oral secretions. Patient verbalized understanding of tx plan. Ordered: Rapid Strep POC 14374 Strep Screen Culture Follow-up With When Contact Information NONE, XXXX Additional Instructions: Patient Education Rapid Strep Test Pharyngitis Problem List/Past Medical History Ongoing Smoker Historical Procedure/Surgical History wisdom teeth. Medications citalopram 20 mg Tab Allergies No Known Allergies Social History Alcohol - Denies Alcohol Use, 10/15/2013 Employment/School Employed, Work/School description: equipment coordinator, medical technician., 05/23/2015 Exercise - Does not exercise, 05/23/2015 Home/Environment Living situation: Home/Independent., 05/23/2015 Nutrition/Health Regular, 05/23/2015 Substance Abuse - Denies Substance Abuse, 10/15/2013 Tobacco - Denies Tobacco Use, 10/15/2013 Never (less than 100 in lifetime) Tobacco Use:. Never Smokeless Tobacco Use:., 05/24/2025 (more content not included)... [facility] Comment on above: Result Comment: Elec tronically Signed By: Tao THOMPSON, Navi Jimenez\.br\Date and Time Signed: 05/24/25 18:37 EDT Ambulatory Visit Summaryon 0 04-11-2025 Ambulatory Visit Summary Ambulatory Visit Summary PAT VILLAYANCI Sifuentes :1995 Visit Date:04/11/2025 Ambulatory Visit Instructions Your Diagnosis Bilateral acute suppurative otitis media Your Care Team Attending Physician - Abigail SOLANO, Huy Primary Care Physician - NONE, XXXX This Is Your Medications List amoxicillin-clavulan ate (Augmentin 875 mg-125 mg Tab) Contact prescribing physician if questions or concerns isotretinoin (ISOtretinoin (Eqv-Myorisan) 40 mg oral capsule) Procedures Performed wisdom teeth. Discharge Vitals Temperature (Tympanic) 36.7 ???C Heart Rate (Peripheral) 93 Blood Pressure 112/62 Height 154 cm Height 61 in Weight 45.2 kg Weight 99.649 lb BMI 19.06 What to do next You Need to Schedule the Following Appointments Follow Up with NONE, XXXX When: Medications What How Much When Why Instructions New amoxicillin-clavulan ate (Augmentin 875 mg-125 mg Tab) 1 Tablets By Mouth Every 12 hours Bilateral acute suppurative otitis media Duration: 10 Days before or with meals and snacks Pickup at [id number] Unchanged isotretinoin (ISOtretinoin (Eqv-Myorisan) 40 mg oral capsule) Contact prescribing physician if questions or concerns Pharmacy Information [facility]/pharmacy #[id number]: [address] [place], [place] [id number] [phone] Allergies No Known Allergies Problems Ongoing - Any problem that you are currently receiving treatment for. Smoker Historical - Any problem that you are no longer receiving treatment for. Patient Survey You may receive a survey via text or e-mail asking about your office visit. Please share your experience with us by completing your survey. We appreciate your feedback and thank you for choosing us for your care. Education Materials Otitis Media, Adult Otitis media is a condition in which the middle ear is red and swollen (inflamed) and full of fluid. The middle ear is the part of the ear that contains bones for hearing as well as air that helps send sounds to the brain. The condition usually goes away on its own. What are the causes? This condition is caused by a blockage in the eustachian tube. This tube connects the middle ear to the back of the nose. It normally allows air into the middle ear. The blockage is caused by fluid or swelling. Problems that can cause blockage include: ??? A cold or infection that affects the nose, mouth, or throat. ??? Allergies. ??? An irritant, such as tobacco smoke. ??? Adenoids that have become large. The adenoids are soft tissue located in the back of the throat, behind the nose and the roof of the mouth. ??? Growth or swelling in the upper part of the throat, just behind the nose (nasopharynx). ??? Damage to the ear caused by a change in pressure. This is called barotrauma. What increases the risk? You are more likely to develop this condition if you: ??? Smoke or are exposed to tobacco smoke. ??? Have an opening in the roof of your mouth (cleft palate). ??? Have acid reflux. ??? Have problems in your body's defense system (immune system). What are the signs or symptoms? Symptoms of this condition include: ??? Ear pain. ??? Fever. ??? Problems with hearing. ??? Being tired. ??? Fluid leaking from the ear. ??? Ringing in the ear. How is this treated? This condition can go away on its own within 3???5 days. But if the condition is caused by germs (bacteria) and does not go away on its own, or if it keeps coming back, your doctor may: ??? Give you antibiotic medicines. ??? Give you medicines for pain. Follow these instructions at home: ??? Take oqsh-lzh-[id number] and prescription medicines only as told by your doctor. ??? If you were prescribed an antibiotic medicine, take it as told by your doctor. Do not stop taking it even if you start to feel better. ??? Keep all follow-up visits. Contact a doctor if: ??? You have bleeding from your nose. ??? There is a lump on your neck. ??? You are not feeling better in 5 days. ??? You feel worse instead of better. Get help right away if: ??? You have pain that is not helped with medicine. ??? You have swelling, redness, or pain around your ear. ??? You get a stiff neck. ??? You cannot move part of your face (paralysis). ??? You notice that the bone behind your ear hurts when you touch it. ??? You get a very bad headache. Summary ??? Otitis media means that the middle ear is red, swollen, and full of fluid. ??? This condition usually goes away on its own. ??? If the problem does not go away, treatment may be needed. You may be given medicines to treat the infection or to treat your pain. ??? If you were prescribed an antibiotic medicine, take it as told by your doctor. Do not stop taking it even if you start to feel better. ??? Keep all follow-up visits. This information is not intended to (more content not included)... [facility] Family Medicine Office/Nithya Rhoades 04-11-2025 Family Medicine Office/Clinic Note Family Medicine Office/Clinic Note Chief Complaint congestion HPI Staff 29 year old female presents with sore throat, cough, headache, runny nose, ear pain/pressure since Tuesday otc: tylenol History of Present Illness I have reviewed and verified the staff HPI to be accurate for this encounter. Portions of this record have been created with voice recognition software. Occasional wrong-word or ???bchbt-e-lvan??? substitutions may have occurred due to the inherent limitations of voice recognition software. Luis Enrique is a 29-year-old female who presents to [facility] care today for concerns of sore throat, cough, headache and runny nose as well as pain and pressure in the ears which has been worsening since Tuesday. Patient has taken ailm-fdu-tlsseyj Tylenol with little to no effect. Patient denies any fever, chills or bodyaches, no wheezing or shortness of breath. Review of Systems PHQ Score Initial Depression Screen Score: 0 SCORE ROS negative unless otherwise stated in HPI. Physical Exam Vitals & Measurements T: 36.7 ???C(Tympanic) HR: 93(Peripheral) BP: 112/62 SpO2: 99% HT: 154 cm HT: 61 in WT: 45.2 kg WT: 99.649 lb BMI: 19.06 General: Well developed, well nourished, in no acute distress Eyes: Pupils equal, round, and reactive to light. Conjunctivae and sclerae normal, and extraocular movements intact Ears: No deformity lesion of external ears or canals bilaterally. Bilateral TMs bulging, erythematous and injected, intact. Nose: Moderate nasal mucosal inflammation and edema with increased pressure palpation of frontal and maxillary sinus areas. Mouth: Mucous membranes moist. Normal oropharynx, and posterior pharynx without lesions or exudates. Tongue normal Neck: Palpable anterior cervical nodes bilaterally Lungs: clear to auscultation throughout, no wheezing, no rales. No respiratory distress Cardio: regular rate and rhythm, no murmur Abdomen: soft, nondistended, BS normal and active x4. Denies tenderness. No guarding or grimacing Musculoskeletal: not assessed Extremity: not assessed Neurologic: Grossly normal Skin: No rashes, ulcerations, or suspicious lesions Mental Status: Alert and oriented x3. Normal mood and affect Assessment/Plan 1. Bilateral acute suppurative otitis media (H66.003: Acute suppurative otitis media without spontaneous rupture of ear drum, bilateral) Will treat with Augmentin, finish course. Fluids/rest, PRN tylenol/ibuprofen for pain and/or fever encouraged. Discussed other cold symptoms remain viral in nature- typical duration 7-14 days. May use Mucinex, Sudafed, Flonase for symptomatic tx. Encouraged to follow up with PCP for recheck in about 5 days to ensure infection resolving, especially if symptoms worsening or fevers. Patient verbalized understanding of treatment plan. Ordered: amoxicillin-clavulan ate, 1 tab(s), Oral, q12hr for 10 day(s), 20 tab(s), Refill(s) 0, before or with meals and snacks, [facility]/pharmacy #[id number], 154, cm, 04/11/25 9:08:00 EDT, Height/Length Dosing, 45.2, kg, 04/11/25 9:08:00 EDT, Weight Dosing Follow-up With When Contact Information NONE, XXXX Additional Instructions: Patient Education Otitis Media, Adult, Rrlu-zi-Nxuc Problem List/Past Medical History Ongoing Smoker Historical Procedure/Surgical History wisdom teeth. Medications Augmentin 875 mg-125 mg Tab, 1 tab(s), Oral, q12hr ISOtretinoin (Eqv-Myorisan) 40 mg oral capsule Allergies No Known Allergies Social History Alcohol - Denies Alcohol Use, 10/15/2013 Employment/School Employed, Work/School description: equipment coordinator, medical technician., 05/23/2015 Exercise - Does not exercise, 05/23/2015 Home/Environment Living situation: Home/Independent., 05/23/2015 Nutrition/Health Regular, 05/23/2015 Substance Abuse - Denies Substance Abuse, 10/15/2013 Tobacco - Denies Tobacco Use, 10/15/2013 Never (less than 100 in lifetime) Tobacco Use:. Never Smokeless Tobacco Use:., 04/11/2025 Never (less than 100 in lifetime) Tobacco Use:. Never Smokeless Tobacco Use:., 11/15/2020 Immunizations Vaccine Date Status diphtheria/pertussis , acel/tetanus adult 11/09/2024 Given Normal [facility] Comment on above: Result Comment: Elec tronically Signed By: Abigail SOLANO, Huy\.br\Date and Time Signed: 04/11/25 09:29 EDT XR Finger - left 2 Viewson 0 01-29-2025 Imaging Result: X-rays AP, lateral and oblique of the left little finger total of three views with permanent images are saved to the record does show increased healing and consolidation over the fracture site. Overall alignment is very appropriate. No evidence of new or further fracture or other osseous abnormality. [facility] XR Finger - left 2 Viewson 0 01-28-2025 Radiology Study observation (narrative) [facility] Maame 11-29-2024 ALT No additional P-5'-P [Catalytic activity/Vol] 14 Int._Unit/L Normal 6-46 [facility] Comment on above: Performed By: #### 2 [id number] #### [facility] [address] [place] [address] Octaviano 11-29-2024 AST [Catalytic activity/Vol] 18 Int._Unit/L Normal 5-43 [facility] Comment on above: Performed By: #### 2 [id number] #### [facility] [address] [place] [address] CBC w/ Auto Diffon 5 Basophils/100 WBC (Bld) 1.4 % Normal 0.0-2.0 [facility] Comment on above: Performed By: #### 2 [id number] #### [facility] [address] [place] [address] Basophils/Leukocytes Auto (Bld) [Pure # fraction] 0.1 E9/L Normal 0.0-0.2 [facility] Comment on above: Performed By: #### 2 [id number] #### [facility] [address] [place] [address] Eosinophils (Bld) [#/Vol] 0.5 E9/L Normal 0.0-0.5 [facility] Comment on above: Performed By: #### 2 [id number] #### [facility] [address] [place] [address] Eosinophils/100 WBC (Bld) 8.1 % High 0.0-8.0 [facility] Comment on above: Performed By: #### 2 [id number] #### [facility] [address] [place] [address] Erythrocyte distribution width (RBC) [Ratio] 12.3 % Normal 10.9-14.2 [facility] Comment on above: Performed By: #### 2 [id number] #### [facility] [address] [place] [address] Hematocrit (Bld) [Volume fraction] 42.5 % Normal 34.0-46.0 [facility] Comment on above: Performed By: #### 2 [id number] #### [facility] [address] [place] [address] Hemoglobin (Bld) [Mass/Vol] 15.0 g/dL Normal 12.0-16.0 [facility] Comment on above: Performed By: #### 2 [id number] #### [facility] [address] [place] [address] Lymphocytes (Bld) [#/Vol] 1.8 E9/L Normal 1.0-4.0 [facility] Comment on above: Performed By: #### 2 574153 #### [facility] [address] [place] [address] Lymphocytes/100 WBC (Bld) 32.3 % Normal 14.0-50.0 [facility] Comment on above: Performed By: #### 2 [id number] #### [facility] [address] [place] [address] MCH (RBC) [Entitic mass] 32.0 pg Normal 27.0-34.0 [facility] Comment on above: Performed By: #### 2 [id number] #### [facility] [address] [place] [address] MCHC (RBC) [Mass/Vol] 35.2 g/dL Normal 31.4-36.0 [facility] Comment on above: Performed By: #### 2 701061 #### [facility] [address] [place] [address] MCV (RBC) [Entitic vol] 90.8 fL Normal 80.0-100.0 [facility] Comment on above: Performed By: #### 2 [id number] #### [facility] [address] [place] [address] Monocytes (Bld) [#/Vol] 0.5 E9/L Normal 0.2-1.0 [facility] Comment on above: Performed By: #### 2 [id number] #### [facility] [address] [place] [address] Neutrophils (Bld) [#/Vol] 2.8 E9/L Normal 2.0-7.5 [facility] Comment on above: Performed By: #### 2 [id number] #### [facility] [address] [place] [address] Neutrophils/100 WBC (Bld) 50.0 % Normal 36.0-75.0 [facility] Comment on above: Performed By: #### 2 [id number] #### [facility] [address] [place] [address] Platelet mean volume (Bld) [Entitic vol] 8.4 fL Normal 6.4-10.8 [facility] Comment on above: Performed By: #### 2 [id number] #### [facility] [address] [place] [address] Platelets (Bld) [#/Vol] 283.0 E9/L Normal 150.0-500.0 [facility] Comment on above: Performed By: #### 2 [id number] #### [facility] [address] [place] [address] RBC (Bld) [#/Vol] 4.7 E12/L Normal 4.3-5.9 [facility] Comment on above: Performed By: #### 2 105446 #### [facility] [address] [place] [address] WBC corrected for nucl RBC Auto (Bld) [#/Vol] 5.6 E9/L Normal 4.0-11.0 [facility] Comment on above: Performed By: #### 2 [id number] #### [facility] [address] [place] [address] CHEMISTRYOrdered By: SYSTEM SYSTEM on 11-29-2024 ALT No additional P-5'-P [Catalytic activity/Vol] 14 [iU]/d Normal 6 - 46 Int._Unit/L Remisol Chem AST [Catalytic activity/Vol] 18 [iU]/d Normal 5 - 43 Int._Unit/L Remisol Chem Triglyceride [Mass/Vol] 94 mg/dL Normal <=149mg/dL Remisol Chem HEMATOLOGYOrdered By: SYSTEM SYSTEM on 11-29-2024 Basophils/100 WBC (Bld) 1.4 % Normal 0.0 - 2.0 % Remisol Heme Basophils/Leukocytes Auto (Bld) [Pure # fraction] 0.1 E9/L Normal 0.0 - 0.2 E9/L Remisol Heme Eosinophils (Bld) [#/Vol] 0.5 E9/L Normal 0.0 - 0.5 E9/L Remisol Heme Eosinophils/100 WBC (Bld) 8.1 % High 0.0 - 8.0 % Remisol Heme Erythrocyte distribution width (RBC) [Ratio] 12.3 % Normal 10.9 - 14.2 % Remisol Heme Hematocrit (Bld) [Volume fraction] 42.5 % Normal 34.0 - 46.0 % Remisol Heme Hemoglobin (Bld) [Mass/Vol] 15.0 g/dL Normal 12.0 - 16.0 gm/dL Remisol Heme Lymphocytes (Bld) [#/Vol] 1.8 E9/L Normal 1.0 - 4.0 E9/L Remisol Heme Lymphocytes/100 WBC (Bld) 32.3 % Normal 14.0 - 50.0 % Remisol Heme MCH (RBC) [Entitic mass] 32.0 pg Normal 27.0 - 34.0 pg Remisol Heme MCHC (RBC) [Mass/Vol] 35.2 g/dL Normal 31.4 - 36.0 gm/dL Remisol Heme MCV (RBC) [Entitic vol] 90.8 fL Normal 80.0 - 100.0 fL Remisol Heme Monocytes (Bld) [#/Vol] 0.5 E9/L Normal 0.2 - 1.0 E9/L Remisol Heme Monocytes/100 WBC (Bld) 8.2 % Normal 4.0 - 14.0 % Remisol Heme Neutrophils (Bld) [#/Vol] 2.8 E9/L Normal 2.0 - 7.5 E9/L Remisol Heme Neutrophils/100 WBC (Bld) 50.0 % Normal 36.0 - 75.0 % Remisol Heme Platelet mean volume (Bld) [Entitic vol] 8.4 fL Normal 6.4 - 10.8 fL Remisol Heme Platelets (Bld) [#/Vol] 283.0 E9/L Normal 150.0 - 500.0 E9/L Remisol Heme RBC (Bld) [#/Vol] 4.7 E12/L Normal 4.3 - 5.9 E12/L Remisol Heme WBC corrected for nucl RBC Auto (Bld) [#/Vol] 5.6 E9/L Normal 4.0 - 11.0 E9/L Remisol Heme Triglycerideson 11-29-2024 Triglyceride [Mass/Vol] 94 mg/dL Normal <=149 [facility] Comment on above: Performed By: #### 2 [id number] #### [facility] [address] [place] [address] XR Finger - left 2 Viewson 0 11-19-2024 Imaging Result: X-rays AP, lateral and oblique of the left little finger total of three views with permanent images are saved to the record does show unchanged position or alignment of the distal phalangeal fracture. No evidence of new or further fracture or other osseous abnormality. [facility] Radiology Study observation (narrative) [facility] XR Finger - left 2 Viewson 0 11-12-2024 Imaging Result: X-rays AP, lateral and oblique of the left little finger from the Emergency Room does show an angulated distal phalangeal fracture, mid portion of the phalanx, extra articular. This is a volar angulation. No evidence of further fracture. The joint is located. Post reduction x-rays AP, lateral and oblique total of three views here today do show adequate reduction, correction of the deformity. No evidence of further fracture or other osseous abnormality. [facility] ED Note-Physicianon 11-11-19 ED Note-Physician ED Note-Physician Basic Information Time Seen: Robby Lozano PA-C 11/09/2024 11:18 Chief Complaint pt. states she injured her L pinky finger in a refrigerator door at work. pt. states she feels like she is going to pass out, tearful/anxious. History of Present Illness 28-year-old female comes to the ED for evaluation of a finger injury. The patient states she had a left pinky/fifth digit closed in a freezer door at work. She says she heard a crack and presents with pain and swelling to that area. No other complaints or concerns. No prior treatments. No concerns for . Review of Systems A 10 point review of systems is negative except as noted above. Medical and Surgical History: Reviewed and noted Social history: Lives at home Tobacco: Denies Physical Exam Vitals & Measurements T: 36.5 ???C(Oral) HR: 82(Peripheral) RR: 16 BP: 115/63 SpO2: 100% HT: 154 cm WT: 44 kg BMI: 18.55 Nurses notes and vital signs reviewed and patient is not hypoxic. General: The patient appears well, resting comfortably. Skin: Warm, dry. Head: Atraumatic. Neck: No JVD. Eye: Normal conjunctiva. Ears, Nose, Mouth, and Throat: Moist mucous membranes. Cardiovascular: Strong distal pulses. Chest wall: Respiratory: Respirations are nonlabored. Back: Normal range of motion. Musculoskeletal: Tenderness of the distal aspect of the left fifth/pinky finger. There is disruption at the base of the nail with dried blood. There is no active bleeding. Patient does have some decreased range of motion of the DIP joint. Gastrointestinal: Urological: Neurological: Awake and alert. No focal deficits. Follows commands. Psychiatric: Cooperative. Medical Decision Making Imaging does show a transverse fracture to the distal phalanx of the fifth digit. On examination she has disruption of the nailbed with some dried blood. There is no active bleeding. There is no exposed bone, but we will treat this as an open fracture with oral antibiotics. The area was splinted by nursing. Her tetanus is updated. She is discharged home with pain medications, finger splint, and orthopedic and occupational health follow-up. Patient was encouraged to return to the ED if symptoms worsen or change. Assessment/Plan Finger fracture (S62.477S: Fracture of unspecified phalanx of unspecified finger, initial encounter for closed fracture) Ordered: acetaminophen-oxycod one, 1 tab(s), Oral, q6hr as needed for pain for 3 day(s), 15 tab(s), Refill(s) 0, [facility]/pharmacy #[id number], 154, cm, 11/09/24 11:24:00 EDT, Height/Length Dosing, 44, kg, 11/09/24 11:24:00 EDT, Weight Dosing Orders: acetaminophen-oxycod one, 1 tab(s), Tab, Oral, Once, Stop date 11/09/24 11:54:00 EDT, STAT, Start date 11/09/24 11:54:00 EDT cephalexin, 500 mg = 1 cap(s), Cap, Oral, Once, Stop date 11/09/24 11:54:00 EDT, STAT, Start date 11/09/24 11:54:00 EDT, 11/09/24 11:54:00 EDT cephalexin, 500 mg = 1 cap(s), Oral, TID, Take one capsule by mouth three times a day for ten days, # 30 cap(s), Refills(s) 0, Pharmacy: [facility]/pharmacy #[id number], 154, cm, 11/09/24 11:24:00 EDT, Height/Length Dosing, 44, kg, 11/09/24 11:24:00 EDT, Weight Dosing tetanus/diphtheria/p ertussis, acel (Tdap), 0.5 mL, Injection, Intramuscular-Immuni zation, Once, Stop date 11/09/24 12:11:00 EDT, STAT, Start date 11/09/24 12:11:00 EDT Finger Splint Application XR Finger(s) Min 2 Views Left Medications Administered Given Keflex 500 mg Cap, 500 mg, Oral Percocet 5 mg-325 mg oral tablet, 1 tab(s), Oral Disposition Plan Patient Discharge Condition Disposition: Discharged home Condition: Improved and stable Counseled: Patient and/or family were counseled to workup, results, treatment plan and follow-up recommendations Discharge Prescription List Prescriptions Keflex 500 mg Cap, 500 mg= 1 cap(s), Oral, TID Percocet 5 mg-325 mg oral tablet, 1 tab(s), Oral, q6hr, PRN Follow-up With When Contact Information Occupational Health: [facility] [phone] In 3 days 11/12/2024 EDT Additional Instructions: Sita Hollis In 3 days 11/12/2024 EDT [address] [place] [address]- Business (1) Additional Instructions: Patient Education Finger Fracture, Adult Attestation I performed a substantive part of the MDM during the patient???s E/M visit. I personally made or approved the documented management plan and acknowledge its risk of complications. (Independent Interpretation) My (EKG/X-Ray/US/CT) interpretation as above. (Discussion) Management/test interpretation discussed with APC. This report was transcribed using voice recognition software. Every effort was made to ensure accuracy, however, inadvertently computerized precision layout worker mistakes may be present. Appropriate healthcare PPE was used in evaluating this patient. Problem List/Past Medical History Ongoing Smoker Historical Procedure/Surgical History wisdom teeth. Medications Inpatient tetanus/diphtheria/p ertussis, acel (Tdap) 5 unit (more content not included)... Normal [facility] Comment on above: Result Comment: Elec tronically Signed By: Robby Lozano PA-C\.br\Date and Time Signed: 11/09/24 12:13 EDT\.br\Electronically Co-Signed By: Rai Flanagan DO\.br\Date and Time Co-Signed: 11/10/24 07:18 EDT ED Clinical Summaryon 2024 ED Clinical Summary ED Clinical Summary [facility] [address] [place], [place] [address] ED Clinical Summary Person Information Name: LUIS ENRIQUE VILLA Mayra/[facility] Age: 28 Years : 1995 Sex: Female Language: Montserratian PCP: NONE, XXXX Marital Status: Phone: [phone] Visit Id: Visit Reason: Finger injury - Minor; LEFT PINKY PAIN - ACCIDENT AT WORK, NAUSEA, LIGHT HEADED Speciality: Acuity: 4 Enc Type: Emergency Med Service: Emergency Arrival: 11/09/2024 11:13:01 Discharge: 11/09/2024 13:08:17 LOS: 000 01:55 Checkin: 11/09/2024 11:13:01 Checkout: 11/09/2024 13:08:17 Dispo Type: Home (Routine DC) EVENTS: Event Name Event Status Request Date/Time Start Date/Time Complete Date/Time Arrive Complete 11/09/2024 11:13:01 11/09/2024 11:13:01 11/09/2024 11:13:01 Document Home Meds Request 11/09/2024 11:13:01 Triage Complete 11/09/2024 11:13:01 11/09/2024 11:24:19 11/09/2024 11:24:19 Bed Assign Complete 11/09/2024 11:16:55 11/09/2024 11:16:55 11/09/2024 11:16:55 Dr Exam Complete 11/09/2024 11:16:55 11/09/2024 11:18:14 11/09/2024 11:18:14 RN Exam Complete 11/09/2024 11:16:55 11/09/2024 11:27:37 11/09/2024 11:27:37 Registration Complete 11/09/2024 11:18:14 11/09/2024 11:58:17 11/09/2024 11:58:17 Dr Exam Complete 11/09/2024 11:20:06 11/09/2024 11:20:06 11/09/2024 11:20:06 Workers Comp Request 11/09/2024 11:24:19 X-Ray Complete 11/09/2024 11:28:14 11/09/2024 11:30:07 11/09/2024 11:39:50 Wet Read Complete 11/09/2024 11:39:50 11/09/2024 12:07:18 11/09/2024 12:07:18 Patient Care Complete 11/09/2024 11:55:32 11/09/2024 13:07:42 Meds Admin Complete 11/09/2024 11:55:32 11/09/2024 12:01:34 Reg Complete Request 11/09/2024 11:58:17 Reg Bed Request Complete 11/09/2024 11:58:17 11/09/2024 11:58:17 11/09/2024 11:58:17 Meds Admin Complete 11/09/2024 12:11:44 11/09/2024 12:49:58 Discharge Complete 11/09/2024 12:33:05 11/09/2024 13:08:24 11/09/2024 13:08:24 Transfer Complete 11/09/2024 13:08:24 11/09/2024 13:08:24 11/09/2024 13:08:24 ADDRESS: [address] [place] [phone] PHYS DOC NOTES: MEDICAL INFORMATION: Prescriptions Given: New Medications [id number], [address], [place] [id number], [phone] acetaminophen-oxycod one (Percocet 5 mg-325 mg oral tablet) 1 Tablets By Mouth every 6 hours as needed as needed for pain for 3 Days. Refills: 0. cephalexin (Keflex 500 mg Cap) 1 Capsules By Mouth 3 times a day. Take one capsule by mouth three times a day for ten days. Refills: 0. Medications to Continue with No Changes Other Medications naproxen (naproxen 500 mg Tab) 1 Tablets By Mouth 2 times a day as needed for pain. Refills: 0. sucralfate (Carafate 1 g/10 mL Susp-Oral) 10 Milliliter By Mouth 4 times a day. Refills: 0. PATIENT EDUCATION INFORMATION: Instructions: Finger Fracture, Adult Follow up: With: Address: When: Occupational Health: [facility] [phone] In 3 days 11/12/2024 With: Address: When: Sita Hollis [address] [place] [address] Jaman (1) In 3 days 11/12/2024 DIAGNOSIS: Finger fracture Normal [facility] ED Patient Summaryon 025 ED Patient Summary ED Patient Summary [facility] [address], [place] [address] Patient Discharge Instructions Person Information Name: LUIS ENRIQUE VILLA Age: 28 Years Arrival Date: 11/09/2024 11:13:01 Discharge Diagnosis: Finger fracture Primary Care Physician: NONE, XXXX Provider Information Primary Provider: Rai Flanagan DO [employer] Card Changer:Robby Lozano PA-C The exam and treatment you received in the Emergency Department were for an urgent problem and are not intended as complete care. It is important that you follow up with a doctor, nurse practitioner, or physician???s sales assistant entertainment and media for ongoing care. If your symptoms become worse or you do not improve as expected and you are unable to reach your usual health care provider, you should return to the Emergency Department. We are available 24 hours a day. LUIS ENRIQUE VILLA has been given the following list of patient education materials, prescriptions and follow-up instructions: Follow-up Instructions: With: Address: When: Occupational Health: [facility] [phone] In 3 days 11/12/2024 With: Address: When: Sita Hollis [address] [place] [address] [facility] (3) In 3 days 11/12/2024 In the event that this physician does not participate in your insurance network, please consult with your insurance company to find a nearby participating provider. Patient Education Materials: Finger Fracture, Adult A MESSAGE TO ALL PATIENTS REGARDING OPIOIDS PRESCRIPTION OPIOIDS: WHAT YOU NEED TO KNOW Prescription opioids can be used to help relieve zpyrrenq-qv-zxidxe pain and are often prescribed following a surgery or injury, or for certain health conditions. These medications can be an important part of the treatment but also come with serious risks. It is important to work with your healthcare provider to make sure you are getting the safest, most effective care. WHAT ARE THE RISKS AND SIDE EFFECTS OF OPIOID USE? Prescription opioids carry serious risks of addiction and overdose, especially with prolonged use. An opioid overdose, often marked by slowed breathing, can cause sudden . The use of prescription opioids can have a number of side effects as well, even when taken as directed: ??? Tolerance???meaning you might need to take more of the medication for the same pain relief ??? Physical dependence???meaning you have symptoms of withdrawal when a medication is stopped ??? Increased sensitivity to pain ??? Constipation ??? Nausea, vomiting, and dry mouth ??? Sleepiness and dizziness ??? Confusion ??? Depression ??? Low levels of testosterone that can result in lower sex drive, energy, and strength ??? Itching and sweating RISKS ARE GREATER WITH: ??? History of drug misuse, substance use disorder, or overdose ??? Mental health conditions (such as depression or anxiety) ??? Sleep apnea ??? Older age (65 years and older) ??? Avoid alcohol while taking prescription opioids. Also, unless specifically advised by your health care provider, medications to avoid include: ??? Benzodiazepines (such as Xanax or Valium) ??? Muscle relaxants (such as Soma or Flexeril) ??? Hypnotics (such as Ambien or Lunesta) ??? Other prescription opioids KNOW YOUR OPTIONS Talk to your health care provider about ways to manage your pain that don???t involve prescription opioids. Some of these options may actually work better and have fewer risks and side effects. Options may include: ??? Pain relievers such as acetaminophen, ibuprofen, and naproxen ??? Some medication that are also used for depression or seizures ??? Physical therapy and exercise ??? Cognitive behavioral therapy, a psychological, goal-directed approach, in which patients learn how to modify physical, behavioral, and emotional triggers of pain and stress. IF YOU ARE PRESCRIBED OPIOIDS FOR PAIN: ??? Never take opioids in greater amounts or more often than prescribed. ??? Follow up with your primary health care provider. o Work together to create a plan on how to manage your pain. o Talk about ways to help manage your pain that don???t involve prescription opioids. o Talk about any and all concerns and side effects. ??? Help prevent misuse and abuse o Never sell or share prescription opioids. o Never use another person???s prescription opioids. ??? Store prescription opioids in a secure place and out of reach of others (this may include visitors, children, friends, and family). ??? Safely dispose of unused prescription opioids: Find your community drug take-back program or your pharmacy mail-back program, or flush them down the toilet, following guidance from the Food and Drug Administration (www.fda.gov/Drugs/R esourcesForYou). ??? Visit www.cdc.gov/drugover dose to learn about the risks of opioids abuse and overdose. ??? If you believe you may be st (more content not included)... Normal [facility] No Panel Informationon 11-09 Glenis Pena 11/12/2024 7:43 AM Hand / UE Inj/Asp on 11/09/2024 3:11 PM Indications: pain Medications: 8 mL lidocaine 1 % Outcome: tolerated well, no immediate complications Procedure, treatment alternatives, risks and benefits explained, specific risks discussed. Immediately prior to procedure a time out was called to verify the correct patient, procedure, equipment, clinical support tech and site/side marked as required. Patient was prepped and draped in the usual sterile fashion. [facility] XR Finger - left 2 Viewson 0 11-09-2024 Radiology Study observation (narrative) [facility] XR Finger(s) Min 2 Views Lef ton 11-09-2024 XR Finger(s) Min 2 Views Left Exam Date/Time: 11/09/2024 11:39 EDT Reason for Exam: Pain, Traumatic Report IMPRESSION: Fracture distal phalanx left fifth digit. CLINICAL INFORMATION: Pain, Traumatic COMPARISON: None. FINDINGS: 3 views. Images of the left fifth digit shows a complete, transverse, nondisplaced, extra-articular fracture of the mid distal phalanx of the left fifth digit. Joint spaces maintained. No bone lesions. Ordering Provider: Robby Lozano FINAL REPORT Dictated: 11/09/2024 11:57 am Bari Mark MD Signed (Electronic Signature): 11/09/2024 11:57 am Signed by: Bari Mark MD Transcribed by: BRAN Technologist: LKS Normal [facility] Maame 07-17-2024 ALT No additional P-5'-P [Catalytic activity/Vol] 14 Int._Unit/L Normal 6-46 [facility] Comment on above: Performed By: #### 2 [id number] #### [facility] [address] [place] [address] Octaviano 07-17-2024 AST [Catalytic activity/Vol] 18 Int._Unit/L Normal 5-43 [facility] Comment on above: Performed By: #### 2 [id number] #### [facility] [address] [place] [address] CBC w/ Auto Diffon 12-10-202 4 Basophils/100 WBC (Bld) 0.8 % Normal 0.0-2.0 [facility] Comment on above: Performed By: #### 2 [id number] #### [facility] [address] [place] [address] Basophils/Leukocytes Auto (Bld) [Pure # fraction] 0.1 E9/L Normal 0.0-0.2 [facility] Comment on above: Performed By: #### 2 [id number] #### [facility] [address] [place] [address] Eosinophils (Bld) [#/Vol] 0.4 E9/L Normal 0.0-0.5 [facility] Comment on above: Performed By: #### 2 [id number] #### [facility] [address] [place] [address] Eosinophils/100 WBC (Bld) 5.2 % Normal 0.0-8.0 [facility] Comment on above: Performed By: #### 2 [id number] #### [facility] [address] [place] [address] Erythrocyte distribution width (RBC) [Ratio] 12.6 % Normal 10.9-14.2 [facility] Comment on above: Performed By: #### 2 [id number] #### [facility] [address] [place] [address] Hematocrit (Bld) [Volume fraction] 46.1 % High 34.0-46.0 [facility] Comment on above: Performed By: #### 2 [id number] #### [facility] [address] [place] [address] Hemoglobin (Bld) [Mass/Vol] 16.1 g/dL High 12.0-16.0 [facility] Comment on above: Performed By: #### 2 [id number] #### [facility] [address] [place] [address] Lymphocytes (Bld) [#/Vol] 1.9 E9/L Normal 1.0-4.0 [facility] Comment on above: Performed By: #### 2 [id number] #### [facility] [address] [place] [address] Lymphocytes/100 WBC (Bld) 26.7 % Normal 14.0-50.0 [facility] Comment on above: Performed By: #### 2 [id number] #### [facility] [address] [place] [address] MCH (RBC) [Entitic mass] 32.2 pg Normal 27.0-34.0 [facility] Comment on above: Performed By: #### 2 [id number] #### [facility] [address] [place] [address] MCHC (RBC) [Mass/Vol] 34.9 g/dL Normal 31.4-36.0 [facility] Comment on above: Performed By: #### 2 [id number] #### [facility] [address] [place] [address] MCV (RBC) [Entitic vol] 92.3 fL Normal 80.0-100.0 [facility] Comment on above: Performed By: #### 2 [id number] #### [facility] [address] [place] [address] Monocytes (Bld) [#/Vol] 0.5 E9/L Normal 0.2-1.0 [facility] Comment on above: Performed By: #### 2 [id number] #### [facility] [address] [place] [address] Neutrophils (Bld) [#/Vol] 4.3 E9/L Normal 2.0-7.5 [facility] Comment on above: Performed By: #### 2 [id number] #### [facility] [address] [place] [address] Neutrophils/100 WBC (Bld) 60.5 % Normal 36.0-75.0 [facility] Comment on above: Performed By: #### 2 [id number] #### [facility] [address] [place] [address] Platelet mean volume (Bld) [Entitic vol] 8.1 fL Normal 6.4-10.8 [facility] Comment on above: Performed By: #### 2 [id number] #### [facility] [address] [place] [address] Platelets (Bld) [#/Vol] 260.0 E9/L Normal 150.0-500.0 [facility] Comment on above: Performed By: #### 2 [id number] #### [facility] [address] [place] [address] RBC (Bld) [#/Vol] 5.0 E12/L Normal 4.3-5.9 [facility] Comment on above: Performed By: #### 2 [id number] #### [facility] [address] [place] [address] WBC corrected for nucl RBC Auto (Bld) [#/Vol] 7.1 E9/L Normal 4.0-11.0 [facility] Comment on above: Performed By: #### 2 [id number] #### [facility] [address] [place] [address] CHEMISTRYOrdered By: SYSTEM SYSTEM on 07-17-2024 ALT No additional P-5'-P [Catalytic activity/Vol] 14 [iU]/d Normal 6 - 46 Int._Unit/L Remisol Chem AST [Catalytic activity/Vol] 18 [iU]/d Normal 5 - 43 Int._Unit/L Remisol Chem Triglyceride [Mass/Vol] 82 mg/dL Normal <=149mg/dL Remisol Chem HEMATOLOGYOrdered By: SYSTEM SYSTEM on 07-17-2024 Basophils/100 WBC (Bld) 0.8 % Normal 0.0 - 2.0 % Remisol Heme Basophils/Leukocytes Auto (Bld) [Pure # fraction] 0.1 E9/L Normal 0.0 - 0.2 E9/L Remisol Heme Eosinophils (Bld) [#/Vol] 0.4 E9/L Normal 0.0 - 0.5 E9/L Remisol Heme Eosinophils/100 WBC (Bld) 5.2 % Normal 0.0 - 8.0 % Remisol Heme Erythrocyte distribution width (RBC) [Ratio] 12.6 % Normal 10.9 - 14.2 % Remisol Heme Hematocrit (Bld) [Volume fraction] 46.1 % High 34.0 - 46.0 % Remisol Heme Hemoglobin (Bld) [Mass/Vol] 16.1 g/dL High 12.0 - 16.0 gm/dL Remisol Heme Lymphocytes (Bld) [#/Vol] 1.9 E9/L Normal 1.0 - 4.0 E9/L Remisol Heme Lymphocytes/100 WBC (Bld) 26.7 % Normal 14.0 - 50.0 % Remisol Heme MCH (RBC) [Entitic mass] 32.2 pg Normal 27.0 - 34.0 pg Remisol Heme MCHC (RBC) [Mass/Vol] 34.9 g/dL Normal 31.4 - 36.0 gm/dL Remisol Heme MCV (RBC) [Entitic vol] 92.3 fL Normal 80.0 - 100.0 fL Remisol Heme Monocytes (Bld) [#/Vol] 0.5 E9/L Normal 0.2 - 1.0 E9/L Remisol Heme Monocytes/100 WBC (Bld) 6.8 % Normal 4.0 - 14.0 % Remisol Heme Neutrophils (Bld) [#/Vol] 4.3 E9/L Normal 2.0 - 7.5 E9/L Remisol Heme Neutrophils/100 WBC (Bld) 60.5 % Normal 36.0 - 75.0 % Remisol Heme Platelet mean volume (Bld) [Entitic vol] 8.1 fL Normal 6.4 - 10.8 fL Remisol Heme Platelets (Bld) [#/Vol] 260.0 E9/L Normal 150.0 - 500.0 E9/L Remisol Heme RBC (Bld) [#/Vol] 5.0 E12/L Normal 4.3 - 5.9 E12/L Remisol Heme WBC corrected for nucl RBC Auto (Bld) [#/Vol] 7.1 E9/L Normal 4.0 - 11.0 E9/L Remisol Heme Triglycerideson 07-17-2024 Triglyceride [Mass/Vol] 82 mg/dL Normal <=149 [facility] Comment on above: Performed By: #### 2 [id number] #### [facility] [address] [place] [address] IGP,APTIMA HPV,AGE GDLNon AGE GDLN ACOG TESTING Note . [facility] Comment on above: TESTS RESULT FLAG UN ITS REF RANGE LAB Clinician Provided Cytology Information Source.............Cervix;Endocervix No. of containers..01 ThinPrep Vial Age Algo ACOG Cira... 30 FLAG LEGEND: L-Low Normal,H-High Normal,LL-Alert Low,HH-Alert High <-Panic Low,>-Panic High,A-Abnormal,AA-Critical Abnormal Performed at: 01 =G [address] [address] Janneth Chou MD, HPV APTIMA Negative Negative [facility] Comment on above: This nucleic acid am plification test detects fourteen high- risk HPV types (16,18,31,33,35,39,45,51,52,56,58,59,66,68) without differentiation. Performed at: =[address] [id number] Chief Procurement Officer: Janneth Chou MD, Phone: [phone] Performed at: [address] [id number] Chief Procurement Officer: Janneth Chou MD, Phone: [phone] IGP, APTIMA HPV, RFX 16/18,45 Note . [facility] Comment on above: TESTS RESULT FLAG UN ITS REF RANGE LAB DIAGNOSIS: 02 NEGATIVE FOR INTRAEPITHELIAL LESION OR MALIGNANCY. Specimen adequacy: 02 Satisfactory for evaluation. No endocervical component is identified. Performed by: 02 Aiden Palumbo, Property Portfolio Officer ([facility]) . 02 Note: Note 02 The Pap smear is a screening test designed to aid in the detection of premalignant and malignant conditions of the uterine cervix. It is not a diagnostic procedure and should not be used as the sole means of detecting cervical cancer. Both false-positive and false-negative reports do occur. Test Methodology: Note 02 This liquid based ThinPrep(R) pap test was screened with the use of an image guided system. HPV Genotype Reflex Note 02 Criteria not met, HPV Genotype not performed. FLAG LEGEND: L-Low Normal,H-High Normal,LL-Alert Low,HH-Alert High <-Panic Low,>-Panic High,A-Abnormal,AA-Critical Abnormal Performed at: 02 WB [facility] [address] [place] [address] Janneth Chou MD, BRUSH-SPATULA CERVIX ENDOCERVIX CLINISYNC [facility] CHEMISTRYOrdered By: SYSTEM SYSTEM on 03-30-2023 HCG.beta subunit Qn 1 m[IU]/mL Normal 1 - 3 mIU/mL FTM C Remisol HEMATOLOGYOrdered By: SYSTEM SYSTEM on 03-30-2023 Basophils/100 WBC (Bld) 0.5 % Normal 0.0 - 2.0 % [facility] Basophils/Leukocytes Auto (Bld) [Pure # fraction] 0.0 E9/L Normal 0.0 - 0.2 E9/L [facility] Eosinophils/100 WBC (Bld) 2.9 % Normal 0.0 - 8.0 % [facility] Eosinophils/Leukocyte s Auto (Bld) [Pure # fraction] 0.2 E9/L Normal 0.0 - 0.5 E9/L [facility] Lymphocytes/100 WBC (Bld) 21.6 % Normal 14.0 - 50.0 % [facility] Lymphocytes/Leukocyte s Auto (Bld) [Pure # fraction] 1.3 E9/L Normal 1.0 - 4.0 E9/L [facility] Monocytes/100 WBC (Bld) 6.4 % Normal 4.0 - 14.0 % [facility] Monocytes/Leukocytes Auto (Bld) [Pure # fraction] 0.4 E9/L Normal 0.2 - 1.0 E9/L [facility] Neutrophils/100 WBC (Bld) 68.6 % Normal 36.0 - 75.0 % [facility] Neutrophils/Leukocyte s Auto (Bld) [Pure # fraction] 4.1 E9/L Normal 2.0 - 7.5 E9/L [facility] HEMATOLOGYOrdered By: Lexa Ayers on 03-30-2023 Erythrocyte distribution width (RBC) [Ratio] 12.6 % Normal 10.9 - 14.2 % [facility] Hematocrit (Bld) [Volume fraction] 41.7 % Normal 34.0 - 46.0 % [facility] Hemoglobin (Bld) [Mass/Vol] 14.7 g/dL Normal 12.0 - 16.0 gm/dL [facility] MCH (RBC) [Entitic mass] 31.9 pg Normal 27.0 - 34.0 pg [facility] MCHC (RBC) [Mass/Vol] 35.3 g/dL Normal 31.4 - 36.0 gm/dL [facility] MCV (RBC) [Entitic vol] 90.5 fL Normal 80.0 - 100.0 fL [facility] Platelet mean volume (Bld) [Entitic vol] 7.8 fL Normal 6.4 - 10.8 fL [facility] Platelets (Bld) [#/Vol] 229.0 E9/L Normal 150.0 - 500.0 E9/L [facility] RBC (Bld) [#/Vol] 4.6 E12/L Normal 4.3 - 5.9 E12/L [facility] WBC corrected for nucl RBC Auto (Bld) [#/Vol] 6.0 E9/L Normal 4.0 - 11.0 E9/L [facility] PAP ACOG PANEL 2: 19 to 27on 03-08-2022 . . [facility] Comment on above: Performed By: #### 4 [id number] #### [facility] [address] [place] [address] Dr. Mynor Eagle Age Gdln ACOG Testing - [facility] Comment on above: Performed By: #### 4 [id number] #### [facility] [address] [place] [address] Dr. Mynor Eagle DIAGNOSIS: Comment [facility] Comment on above: Result Comment: NEGA TIVE FOR INTRAEPITHELIAL LESION OR MALIGNANCY. Performed By: #### 4 [id number] #### [facility] [address] [place] [address] Dr. Mynor Eagle Methodology: Comment [facility] Comment on above: Result Comment: This liquid based ThinPrep(R) pap test was screened with the use of an image guided system. Performed By: #### 4 [id number] #### [facility] [address] [place] [address] Dr. Mnyor Eagle Note: Comment [facility] Comment on above: Result Comment: The Pap smear is a screening test designed to aid in the detection of premalignant and malignant conditions of the uterine cervix. It is not a diagnostic procedure and should not be used as the sole means of detecting cervical cancer. Both false-positive and false-negative reports do occur. . Performed By: #### 4 [id number] #### [facility] [address] [place] [address] Dr. Mynor Eagle Performed by: Comment Normal [facility] Comment on above: Result Comment: Aston Gonsalez, Property Portfolio Officer (ASCP) Performed By: #### 4 [id number] #### [facility] [address] [address] [address] Mynor Eagle Reflex Criteria: Comment Normal [facility] Comment on above: Result Comment: The HPV DNA reflex criteria were not met with this specimen result therefore, no HPV testing was performed. . Performed By: #### 4 [id number] #### [facility] [address] [address] [address] Mynor Eagle Specimen adequacy: Comment Normal [facility] Comment on above: Result Comment: Sati sfactory for evaluation. No endocervical component is identified. Performed By: #### 4 [id number] #### [facility] [address] [address] [address] Mynor Eagle CNOVon 12-01-2018 CNOV Office Visit (NEPHMN) LUIS ENRIQUE VILLA ([id number]) 1995 F Date Time Provider Department 12/01/18 12:30 PM LELE DWYER NEPHRAINA During your visit today, we recorded the following information about you: Pulse Blood pressure Weight Height 95/minute 110/74 44.3 kg 1.549 m Lele Dwyer MD, 12/02/2018 8:30 AM Signed 12/01/2018 Luis Enrique Villa [id number] Dear Dr. Moreno, I had the pleasure of seeing Luis Enrique Allen for a second opinion regarding renal cysts on 12/01/2018 at the [facility] location. Please allow me to briefly review her medical history for my records. As you know she is a very pleasant 22 year old female who has a history of recurrent urinary tract infections that was noted to have an acute kidney injury during a recent ER visit with renal ultrasound findings of bilateral renal cysts. She was subsequently referred to nephrology and seen by Dr. Yin on October 19, 2017. Further imaging investigation into her renal cysts was limited as she was 9 weeks at the time. The etiology of the cysts were not clear and she was referred to Dr. Quick (the chair of nephrology at the [facility]) and Dr. Hassan ([facility] urology). Since that time, she had a successful and delivery of a healthy girl. No noted complications, no pre-eclampsia, no eclampsia. The etiology of her cysts remain unclear, however, her serum creatinine appears to be stable based on available older results that I have at approximately 0.5-0.6 mg/dL. There is no family history of kidney problems or polycystic kidney disease. She did have a CT scan of her abdomen with IV contrast (performed at an outside hospital), however, the results are unavailable at this time. She overall feels well, is active, maintaining a stable weight, and has no urinary concerns. She was accompanied by her grandmother to the office today. ALLERGIES No Known Allergies Current Outpatient Medications: norethindrone-e.estr adiol-iron (08/27, , ORAL) Take 1 tablet by mouth once daily. sertraline (ZOLOFT) 25 mg tablet Take 1 tablet by mouth once daily. No current facility-administere d medications for this visit. PAST MEDICAL HISTORY Diagnosis Date - Renal cyst - Short stature 2003 PAST SURGICAL HISTORY Procedure Laterality Date - EXTRACTION ERUPTED TOOTH/EXR 2012 - PAST SURGICAL HISTORY OF N/A 2017 LEEP for + PAP REVIEW OF SYSTEMS No chest pain, nausea, vomiting, headaches, or shortness of breath. All other reviewed and negative other than HPI. BP 110/74 (BP Site: Right Arm, BP Position: Sitting, BP Cuff Size: Small Adult) Pulse 95 Ht 154.9 cm (5' 1 ) Wt 44.3 kg (97 lb 9.6 oz) BMI 18.44 kg/m? PHYSICAL EXAMINATION: Average BP (BpTru): 110/74 BpTRU BP #1 discard value (BpTru): 103/68 Pulse #1 Discard Value (BpTru): 82 beats/min BP #2 (BpTru): 111/81 Pulse #2 (BpTru): 98 beats/min BP #3 (BpTru): 111/76 Pulse #3 (BpTru): 94 beats/min BP #4 (BpTru): 110/75 Pulse #4 (BpTru): 91 beats/min BP #5 (BpTru): 107/74 Pulse #5 (BpTru): 92 beats/min BP #6 (BpTru): 110/65 Pulse #6 (BpTru): 101 beats/min Average BP (BpTru): 110/74 Average Pulse (BpTru): 95 beats/min BP cuff location: Right upper arm BP cuff size: small adult First BP (Left): 103/75 First BP (Right): 107/67 Orthostatic Vitals Standing BP (BpTru): 104/65 Standing pulse (BpTru): 109 General appearance: well appearing, alert, in no acute distress, well-hydrated Head: normocephalic, no masses, lesions, tenderness or abnormalities Eyes: anicteric sclera Oropharynx: moist mucous membranes, no lesions noted Neck: supple, no lymphadenopathy Lungs: clear to auscultation, no wheezing or rhonchi Heart: RRR without rubs. Abdomen: abdomen soft, non-tender, bowel sounds normal, no masses appreciated Extremities: no clubbing, cyanosis, or edema. Neuro: gait normal, oriented X 3 RENAL FOLLOW UP [facility] Latest Ref Rng AND Units 07/11/2002 GLUCOSE 65 - 110 mg/dL 117 (A) BUN 5 - 20 mg/dL 10 CREATININE 0.3 - 1.0 mg/dL 0.4 SODIUM 132 - 148 mmol/L 141 POTASSIUM 3.5 - 5.0 mmol/L 3.9 CO2 24 - 32 mmol/L 21 (A) ALBUMIN 3.5 - 5.0 g/dL 4.6 CALCIUM 8.5 - 10.5 mg/dL 10.0 PROTEIN, URINE Negative mg/dL Urinalysis with microscopy indicated: Urine dip shows: Component Latest Ref Rng AND Units 12/01/2018 Color Yellow Yellow Clarity Clear Cloudy (A) Glucose, Urine Negative mg/dL Negative Bilirubin, Urine Negative Negative Ketones, Urine Negative Negative Specific [place], Ur 1.005 - 1.030 1.025 Hemoglobin/Blood,Ur Negative Negative pH, Urine 4.5 - 8.0 7.0 Protein, Urine Negative mg/dL Negative Urobilinogen Normal Normal Nitrites Negative Negative Leukest Negative Negative Comments SEE COMMENT Urine Aldo Comment SEE COMMENT ASSESSMENT and PLAN Ms. Luis Enrique Villa is a 22 year old female with bilateral renal cysts and normal serum creatinine. Kidney: The nature of her kidney cysts remain unclear, however, it is reassuring to know that her serum creatinine has remained stable (even with two pregnancies). I suspect that she will have a stable serum creatinine for many years. Once the outside CT scan of her abdomen is interpreted, additional work-up/intervention will be determined (potential genetics referral?). Cardiovascular: Minimizing cardiovascular risk is important for slowing the progression of kidney disease. The target blood pressure for this patient is <130/80 though this has been debated in the literature. Today her blood pressure was at goal without antihypertensive medications. Volume status: On exam today she appeared euvolemic. Follow-up will be determined I have asked that she return to clinic months or earlier if needed. Thank you for allowing me to participate in this patient's care. Please feel free to contact me with any questions or concerns. With warmest regards, Lele Dwyer MD, JOSH Jimenez Endowed Chair in Nephrology and Hypertension Research Md Psychiatryfilenet architect, [facility] Superintendent Distribution of Basic Science Education, [facility] [place] Greater than 40 minutes were spent with Ms. Villa in reviewing her history, examination, and in decision-making today. Lele Dwyer MD, 12/01/2018 1:53 PM Signed 1. Please avoid the use of Aleve, naproxen, NSAIDs, ibuprofen, Motrin. 2. Please follow-up with your doctor's appointments. 3. Please call if you have any questions or concerns. Lele Dwyer MD, 12/02/2018 8:30 AM Signed 12/01/2018 Luis Enrique Villa [id number] Dear Dr. Moreno, I had the pleasure of seeing Luis Enrique Villa for a second opinion regarding renal cysts on 12/01/2018 at the [facility] location. Please allow me to briefly review her medical history for my records. As you know she is a very pleasant 22 year old female who has a history of recurrent urinary tract infections that was noted to have an acute kidney injury during a recent ER visit with renal ultrasound findings of bilateral renal cysts. She was subsequently referred to nephrology and seen by Dr. Yin on October 19, 2017. Further imaging investigation into her renal cysts was limited as she was 9 weeks at the time. The etiology of the cysts were not clear and she was referred to Dr. Quick (the chair of nephrology at the [facility]) and Dr. Hassan ([facility] urology). Since that time, she had a successful and delivery of a healthy girl. No noted complications, no pre-eclampsia, no eclampsia. The etiology of her cysts remain unclear, however, her serum creatinine appears to be stable based on available older results that I have at approximately 0.5-0.6 mg/dL. There is no family history of kidney problems or polycystic kidney disease. She did have a CT scan of her abdomen with IV contrast (performed at an outside hospital), however, the results are unavailable at this time. She overall feels well, is active, maintaining a stable weight, and has no urinary concerns. She was accompanied by her grandmother to the office today. ALLERGIES No Known Allergies Current Outpatient Medications: norethindrone-e.estr adiol-iron (, ORAL) Take 1 tablet by mouth once daily. sertraline (ZOLOFT) 25 mg tablet Take 1 tablet by mouth once daily. No current facility-administere d medications for this visit. PAST MEDICAL HISTORY Diagnosis Date - Renal cyst - Short stature 2003 PAST SURGICAL HISTORY Procedure Laterality Date - EXTRACTION ERUPTED TOOTH/EXR 2012 - PAST SURGICAL HISTORY OF N/A 2017 LEEP for + PAP REVIEW OF SYSTEMS No chest pain, nausea, vomiting, headaches, or shortness of breath. All other reviewed and negative other than HPI. BP 110/74 (BP Site: Right Arm, BP Position: Sitting, BP Cuff Size: Small Adult) Pulse 95 Ht 154.9 cm (5' 1 ) Wt 44.3 kg (97 lb 9.6 oz) BMI 18.44 kg/m? PHYSICAL EXAMINATION: Average BP (BpTru): 110/74 BpTRU BP #1 discard value (BpTru): 103/68 Pulse #1 Discard Value (BpTru): 82 beats/min BP #2 (BpTru): 111/81 Pulse #2 (BpTru): 98 beats/min BP #3 (BpTru): 111/76 Pulse #3 (BpTru): 94 beats/min BP #4 (BpTru): 110/75 Pulse #4 (BpTru): 91 beats/min BP #5 (BpTru): 107/74 Pulse #5 (BpTru): 92 beats/min BP #6 (BpTru): 110/65 Pulse #6 (BpTru): 101 beats/min Average BP (BpTru): 110/74 Average Pulse (BpTru): 95 beats/min BP cuff location: Right upper arm BP cuff size: small adult First BP (Left): 103/75 First BP (Right): 107/67 Orthostatic Vitals Standing BP (BpTru): 104/65 Standing pulse (BpTru): 109 General appearance: well appearing, alert, in no acute distress, well-hydrated Head: normocephalic, no masses, lesions, tenderness or abnormalities Eyes: anicteric sclera Oropharynx: moist mucous membranes, no lesions noted Neck: supple, no lymphadenopathy Lungs: clear to auscultation, no wheezing or rhonchi Heart: RRR without rubs. Abdomen: abdomen soft, non-tender, bowel sounds normal, no masses appreciated Extremities: no clubbing, cyanosis, or edema. Neuro: gait normal, oriented X 3 RENAL FOLLOW UP [facility] Latest Ref Rng AND Units 07/11/2002 GLUCOSE 65 - 110 mg/dL 117 (A) BUN 5 - 20 mg/dL 10 CREATININE 0.3 - 1.0 mg/dL 0.4 SODIUM 132 - 148 mmol/L 141 POTASSIUM 3.5 - 5.0 mmol/L 3.9 CO2 24 - 32 mmol/L 21 (A) ALBUMIN 3.5 - 5.0 g/dL 4.6 CALCIUM 8.5 - 10.5 mg/dL 10.0 PROTEIN, URINE Negative mg/dL Urinalysis with microscopy indicated: Urine dip shows: Component Latest Ref Rng AND Units 12/01/2018 Color Yellow Yellow Clarity Clear Cloudy (A) Glucose, Urine Negative mg/dL Negative Bilirubin, Urine Negative Negative Ketones, Urine Negative Negative Specific [place], Ur 1.005 - 1.030 1.025 Hemoglobin/Blood,Ur Negative Negative pH, Urine 4.5 - 8.0 7.0 Protein, Urine Negative mg/dL Negative Urobilinogen Normal Normal Nitrites Negative Negative Leukest Negative Negative Comments SEE COMMENT Urine Aldo Comment SEE COMMENT ASSESSMENT and PLAN Ms. Luis Enrique Villa is a 22 year old female with bilateral renal cysts and normal serum creatinine. Kidney: The nature of her kidney cysts remain unclear, however, it is reassuring to know that her serum creatinine has remained stable (even with two pregnancies). I suspect that she will have a stable serum creatinine for many years. Once the outside CT scan of her abdomen is interpreted, additional work-up/intervention will be determined (potential genetics referral?). Cardiovascular: Minimizing cardiovascular risk is important for slowing the progression of kidney disease. The target blood pressure for this patient is <130/80 though this has been debated in the literature. Today her blood pressure was at goal without antihypertensive medications. Volume status: On exam today she appeared euvolemic. Follow-up will be determined I have asked that she return to clinic months or earlier if needed. Thank you for allowing me to participate in this patient's care. Please feel free to contact me with any questions or concerns. With warmest regards, Lele Dwyer MD, JOSH Jmienez Endowed Chair in Nephrology and Hypertension Research Md Psychiatryfilenet architect, [facility] Superintendent Distribution of Basic Science Education, [facility] [place] Greater than 40 minutes were spent with Ms. Villa in reviewing her history, examination, and in decision-making today. 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 Please avoid the use of Aleve, naproxen, NSAIDs, ibuprofen, Motrin. 2. Please follow-up with your doctor's appointments. 3. Please call if you have any questions or concerns. Medications Discontinued During This Encounter CYPROHEPTADINE 2 MG/5 ML SYRUP 3 m* 1 year 10/18/2005 12/01/2018 Class: Print RX Route: ORAL Sig: take 1 1/2 tsp qhs Disc: Course of therapy completed EMLA CREAM W/TEGADERM 1 1 10/01/2003 12/01/2018 Class: Print RX Sig: as directed Disc: Course of therapy completed ULTRAFINE III SHORT PEN 31 NEEDLE 100 1 year 08/20/2005 12/01/2018 Class: Print RX Route: Miscell. (Med.Supl.;Non-Drugs ) Sig: as directed Disc: Course of therapy completed HUMATROPE 12 MG (36 UNIT) INJECTION,* 3 mo* 1 year 07/29/2005 12/01/2018 Class: Print RX Route: INJECTION(UNSPECIFIE D PARENTERAL ROUTES) Si.0 mg daily Disc: Course of therapy completed PLUS, CALCIUM CARB, 27 mg i* 11 10/11/2017 12/01/2018 Class: Historical Med Route: ORAL Sig: Take 1 tablet by mouth once daily. Disc: Course of therapy completed Disposition: Return if symptoms worsen or fail to improve. Follow-up and Disposition History Recorded Letter Text Encounter Status:Closed by LELE DWYER MD on 12/02/18 Normal [facility] PROGRESSon 12-01-2018 Protein mass conc HNO ID: [id number] Author: Lele Dwyer MD Service: ? 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 Moreno, I had the pleasure of seeing Luis Enrique Villa for a second opinion regarding renal cysts on 12/01/2018 at the [facility] location. Please allow me to briefly review her medical history for my records. As you know she is a very pleasant 22 year old female who has a history of recurrent urinary tract infections that was noted to have an acute kidney injury during a recent ER visit with renal ultrasound findings of bilateral renal cysts. She was subsequently referred to nephrology and seen by Dr. Yin on October 19, 2017. Further imaging investigation into her renal cysts was limited as she was 9 weeks at the time. The etiology of the cysts were not clear and she was referred to Dr. Quick (the chair of nephrology at the [facility]) and Dr. Hassan ([facility] urology). Since that time, she had a successful and delivery of a healthy girl. No noted complications, no pre-eclampsia, no eclampsia. The etiology of her cysts remain unclear, however, her serum creatinine appears to be stable based on available older results that I have at approximately 0.5-0.6 mg/dL. There is no family history of kidney problems or polycystic kidney disease. She did have a CT scan of her abdomen with IV contrast (performed at an outside hospital), however, the results are unavailable at this time. She overall feels well, is active, maintaining a stable weight, and has no urinary concerns. She was accompanied by her grandmother to the office today. ALLERGIES No Known Allergies Current Outpatient Medications: norethindrone-e.estr adiol-iron (08/27, , ORAL) Take 1 tablet by mouth once daily. sertraline (ZOLOFT) 25 mg tablet Take 1 tablet by mouth once daily. No current facility-administere d medications for this visit. PAST MEDICAL HISTORY Diagnosis Date - Renal cyst - Short stature 2003 PAST SURGICAL HISTORY Procedure Laterality Date - EXTRACTION ERUPTED TOOTH/EXR 2012 - PAST SURGICAL HISTORY OF N/A 2017 LEEP for + PAP REVIEW OF SYSTEMS No chest pain, nausea, vomiting, headaches, or shortness of breath. All other reviewed and negative other than HPI. BP 110/74 (BP Site: Right Arm, BP Position: Sitting, BP Cuff Size: Small Adult) Pulse 95 Ht 154.9 cm (5' 1 ) Wt 44.3 kg (97 lb 9.6 oz) BMI 18.44 kg/m? PHYSICAL EXAMINATION: Average BP (BpTru): 110/74 BpTRU BP #1 discard value (BpTru): 103/68 Pulse #1 Discard Value (BpTru): 82 beats/min BP #2 (BpTru): 111/81 Pulse #2 (BpTru): 98 beats/min BP #3 (BpTru): 111/76 Pulse #3 (BpTru): 94 beats/min BP #4 (BpTru): 110/75 Pulse #4 (BpTru): 91 beats/min BP #5 (BpTru): 107/74 Pulse #5 (BpTru): 92 beats/min BP #6 (BpTru): 110/65 Pulse #6 (BpTru): 101 beats/min Average BP (BpTru): 110/74 Average Pulse (BpTru): 95 beats/min BP cuff location: Right upper arm BP cuff size: small adult First BP (Left): 103/75 First BP (Right): 107/67 Orthostatic Vitals Standing BP (BpTru): 104/65 Standing pulse (BpTru): 109 General appearance: well appearing, alert, in no acute distress, well-hydrated Head: normocephalic, no masses, lesions, tenderness or abnormalities Eyes: anicteric sclera Oropharynx: moist mucous membranes, no lesions noted Neck: supple, no lymphadenopathy Lungs: clear to auscultation, no wheezing or rhonchi Heart: RRR without rubs. Abdomen: abdomen soft, non-tender, bowel sounds normal, no masses appreciated Extremities: no clubbing, cyanosis, or edema. Neuro: gait normal, oriented X 3 RENAL FOLLOW UP [facility] Latest Ref Rng AND Units 07/11/2002 GLUCOSE 65 - 110 mg/dL 117 (A) BUN 5 - 20 mg/dL 10 CREATININE 0.3 - 1.0 mg/dL 0.4 SODIUM 132 - 148 mmol/L 141 POTASSIUM 3.5 - 5.0 mmol/L 3.9 CO2 24 - 32 mmol/L 21 (A) ALBUMIN 3.5 - 5.0 g/dL 4.6 CALCIUM 8.5 - 10.5 mg/dL 10.0 PROTEIN, URINE Negative mg/dL Urinalysis with microscopy indicated: Urine dip shows: Component Latest Ref Rng AND Units 12/01/2018 Color Yellow Yellow Clarity Clear Cloudy (A) Glucose, Urine Negative mg/dL Negative Bilirubin, Urine Negative Negative Ketones, Urine Negative Negative Specific [place], Ur 1.005 - 1.030 1.025 Hemoglobin/Blood,Ur Negative Negative pH, Urine 4.5 - 8.0 7.0 Protein, Urine Negative mg/dL Negative Urobilinogen Normal Normal Nitrites Negative Negative Leukest Negative Negative Comments SEE COMMENT Urine Aldo Comment SEE COMMENT ASSESSMENT and PLAN Ms. Luis Enrique Villa is a 22 year old female with bilateral renal cysts and normal serum creatinine. Kidney: The nature of her kidney cysts remain unclear, however, it is reassuring to know that her serum creatinine has remained stable (even with two pregnancies). I suspect that she will have a stable serum creatinine for many years. Once the outside CT scan of her abdomen is interpreted, additional work-up/intervention will be determined (potential genetics referral?). Cardiovascular: Minimizing cardiovascular risk is important for slowing the progression of kidney disease. The target blood pressure for this patient is <130/80 though this has been debated in the literature. Today her blood pressure was at goal without antihypertensive medications. Volume status: On exam today she appeared euvolemic. Follow-up will be determined I have asked that she return to clinic months or earlier if needed. Thank you for allowing me to participate in this patient's care. Please feel free to contact me with any questions or concerns. With warmest regards, Lele Dwyer MD, JOSH Jimenez Endowed Chair in Nephrology and Hypertension Research Md Psychiatryfilenet architect, [facility] Superintendent Distribution of Basic Science Education, [facility] [place] Greater than 40 minutes were spent with Ms. Villa in reviewing her history, examination, and in decision-making today. Normal [facility] Urinalysison 12-01-2018 Bilirubin, Urine Negative Normal Negative [facility] Comment on above: Performed By: #### U A #### [facility] [address] [place], [place] [address] Clarity Nom (U) Cloudy Critically abnormal Clear [facility] Comment on above: Performed By: #### U A #### [facility] [employer] [address] [place], [place] [address] Color Nom (U) Yellow Normal Yellow [facility] Comment on above: Performed By: #### U A #### [facility] [address] [place], [place] [id number] Comments SEE COMMENT Normal [facility] Comment on above: Result Comment: Micr oscopic not warranted Performed By: #### U A #### [facility] [address] [place] [id number] Glucose Ql (U) Negative Normal Negative [facility] Comment on above: Performed By: #### U A #### [facility] [address] [place] [address] Hemoglobin/Blood,Ur Negative Normal Negative [facility] Comment on above: Performed By: #### U A #### [place] [address] [place] [address] Ketones Ql (U) Negative Normal Negative [facility] Comment on above: Performed By: #### U A #### [place] [address] Leukest Negative Normal Negative [facility] Comment on above: Performed By: #### U A #### [place] [address] [place] [address] Nitrite Ql (U) Negative Normal Negative [facility] Comment on above: Performed By: #### U A #### [place] [address] [place] [address] pH (Bld) 7.0 Normal 4.5-8.0 [facility] Comment on above: Performed By: #### U A #### [facility] [address] [place] [address] Protein mass conc (U) Negative Normal Negative [facility] Comment on above: Performed By: #### U A #### [place] [address] [place], [place] [address] Specific [place], Ur 1.025 Normal 1.005-1.030 [facility] Comment on above: Performed By: #### U A #### [facility] [employer] [address] [place], [place] [address] Urine Aldo Comment SEE COMMENT Normal [facility] Comment on above: Result Comment: N/A Performed By: #### U A #### [facility] [address] [place], [place] [address] Urobilinogen Qn (U) Normal Normal Normal [facility] Comment on above: Performed By: #### U A #### [facility] [address] [place], [place] [address] SR-CT ABD/PELVIS W CON IMPOR Ton 11-22-2018 SR-CT ABD/PELVIS W CON IMPORT Images were obtained outside of [facility] [id number] CN Normal [facility] Vital Signs Date Time Vital Sign Value Performing Clinician Facility 05-27-2025 10:20-0400 Body mass index (BMI) [Ratio] 19.27 kg/m2 Liset Anu DO Work Phone: [facility] [employer] 05-27-2025 10:20-0400 Body weight 46.27 kg Liset Anu DO Work Phone: [facility] 05-27-2025 10:20-0400 Diastolic blood pressure 58 mm[Hg] Liset Anu DO Work Phone: [facility] 05-27-2025 10:20-0400 Systolic blood pressure 98 mm[Hg] Liset Anu DO Work Phone: [facility] 01-28-2025 09:20-0400 Body height 154.9 cm Sita Pocos DO Work Phone: [facility] 01-28-2025 09:20-0400 Body mass index (BMI) [Ratio] 18.33 kg/m2 Sita Pocos DO Work Phone: [facility] 01-28-2025 09:20-0400 Body weight 44 kg Sita Pocos DO Work Phone: [facility] 12-17-2024 08:53-0400 Body height 154.9 cm Sita Pocos DO Work Phone: [facility] 12-17-2024 08:53-0400 Body mass index (BMI) [Ratio] 18.33 kg/m2 Sita Pocos DO Work Phone: [facility] 12-17-2024 08:53-0400 Body weight 44 kg Sita Pocos DO Work Phone: [facility] 12-05-2024 08:03-0400 Body height 154.9 cm Sita Pocos DO Work Phone: [facility] 12-05-2024 08:03-0400 Body mass index (BMI) [Ratio] 18.33 kg/m2 Sita Pocos DO Work Phone: [facility] 12-05-2024 08:03-0400 Body weight 44 kg Sita Pocos DO Work Phone: [facility] 11-19-2024 08:30-0400 Body height 154.9 cm Sita Pocos DO Work Phone: [facility] 11-19-2024 08:30-0400 Body mass index (BMI) [Ratio] 18.33 kg/m2 Sita Pocos DO Work Phone: [facility] 11-19-2024 08:30-0400 Body weight 44 kg Sita Pocos DO Work Phone: [facility] 11-09-2024 14:47-0400 Body height 154.9 cm Sita Pocos DO Work Phone: [facility] 11-09-2024 14:47-0400 Body mass index (BMI) [Ratio] 18.44 kg/m2 Sita Pocos DO Work Phone: [facility] 11-09-2024 14:47-0400 Body weight 44.27 kg Sita Pocos DO Work Phone: [facility] 11-09-2024 11:17-0400 Body temperature 97.7 [degF] Rai Flanagan [facility] 11-09-2024 11:17-0400 Diastolic blood pressure 63 mm[Hg] Rai Davise [facility] 11-09-2024 11:17-0400 Heart rate 82 /min Rai Davise [facility] 11-09-2024 11:17-0400 Respiratory rate 16 /min Ria Davise [facility] 11-09-2024 11:17-0400 SaO2% (BldA) [Mass fraction] 100 % Rai Davise [facility] 11-09-2024 11:17-0400 Systolic blood pressure 115 mm[Hg] Rai Davise [facility] 04-19-2023 12:42-0400 Body temperature 98.24 [degF] Rai Davise [facility] 04-19-2023 12:42-0400 Diastolic blood pressure 73 mm[Hg] Rai Davise [facility] 04-19-2023 12:42-0400 Heart rate 89 /min Rai Davise [facility] 04-19-2023 12:42-0400 Respiratory rate 18 /min Rai Davise [facility] 04-19-2023 12:42-0400 SaO2% (BldA) [Mass fraction] 96 % Rai Davise [facility] 04-19-2023 12:42-0400 Systolic blood pressure 101 mm[Hg] Rai Davise [facility] Encounters Encounter Date Encounter Type Care Provider Facility Start: 05-27-2025 End: 05-27-2025 Bamboo flowsheet Lisetalvina Brennan DO Work Phone: [facility] Start: 05-27-2025 End: 05-27-2025 Bamboo flowsheet Liset Trejoo DO Work Phone: [facility] Start: 05-27-2025 End: 05-27-2025 Patient encounter procedure Liset Trejoo DO Work Phone: [facility] Start: 05-27-2025 End: 05-27-2025 Periodic preventive med est patient 18-39 yrs Liset Trejoo DO Work Phone: [facility] Comment on above: Well woman exam with routine gynecological exam; Mood changes Start: 05-24-2025 End: 05-24-2025 ambulatory Navi Burger Facility:[facility] Start: 05-24-2025 End: 05-24-2025 Patient encounter procedure Navi Burger [facility] Start: 04-11-2025 End: 04-11-2025 ambulatory Sita Hyaes Facility:[facility] Start: 04-11-2025 End: 04-11-2025 Patient encounter procedure Sita Hayes [facility] Start: 01-28-2025 End: 01-28-2025 Patient encounter procedure Hubert Pocos DO Work Phone: [facility] Comment on above: Closed nondisplaced fracture of distal phalanx of left little finger, initial encounter (Primary Dx) Start: 01-28-2025 End: 01-28-2025 ambulatory HUBERT POCOS Not Available Start: 12-17-2024 End: 12-17-2024 Patient encounter procedure Hubert Pocos DO Work Phone: [facility] Comment on above: Closed nondisplaced fracture of distal phalanx of left little finger, initial encounter (Primary Dx) Start: 12-17-2024 End: 12-17-2024 ambulatory HUBERT POCOS Not Available Start: 12-11-2024 ambulatory Navi Burger Facility: [facility] Start: 12-05-2024 End: 12-05-2024 Patient encounter procedure Sita Ordaz Pocos DO Work Phone: [facility] Comment on above: Closed nondisplaced fracture of distal phalanx of left little finger, initial encounter (Primary Dx) Start: 12-05-2024 End: 12-05-2024 ambulatory HUBERT POCOS Not Available Start: 11-29-2024 End: 11-29-2024 ambulatory BILLIE DELGADO Facility:[facility] Start: 11-29-2024 End: 11-29-2024 Patient encounter procedure BILLIE DELGADO [facility] Start: 11-19-2024 End: 11-19-2024 Patient encounter procedure Sita Ordaz Pocos DO Work Phone: [facility] Comment on above: Closed nondisplaced fracture of distal phalanx of left little finger, initial encounter (Primary Dx) Start: 11-19-2024 End: 11-19-2024 ambulatory HUBERT POCOS Not Available Start: 11-09-2024 End: 11-09-2024 ambulatory HUBERT POCOS Not Available Start: 11-09-2024 End: 11-09-2024 Patient encounter procedure Sita Ordaz Pocos DO Work Phone: [facility] Comment on above: Closed nondisplaced fracture of distal phalanx of left little finger, initial encounter (Primary Dx); Pain of finger of left hand Start: 11-09-2024 End: 11-09-2024 Bamboo flowsheet Hubert Pocos DO Work Phone: [facility] Start: 11-09-2024 End: 11-09-2024 Bamboo flowsheet Hubert Pocos DO Work Phone: [facility] Start: 11-09-2024 End: 11-09-2024 Emergency department patient visit Rai Flanagan [facility] Start: 07-17-2024 End: 07-17-2024 ambulatory BILLIE DELGADO Facility:[facility] Start: 07-17-2024 End: 07-17-2024 Patient encounter procedure BILLIE DELGADO [facility] Start: 05-07-2024 End: 05-07-2024 Phys/qhp telephone evaluation 5-10 min Liset Anu DO Work Phone: [facility] Comment on above: Mood changes Start: 03-26-2024 End: 03-30-2024 Clinisync Result Encounter Liset Anu DO Work Phone: [facility] External Department Unsolicited Start: 03-26-2024 End: 03-30-2024 Clinisync Result Encounter Liset Anu DO Work Phone: [facility] Unsolicited Start: 03-26-2024 Patient encounter procedure Liset Anu DO Work Phone: [facility] Start: 03-26-2024 End: 03-26-2024 ambulatory LISET ANU Not Available Start: 04-19-2023 End: 04-19-2023 Emergency department patient visit Rai Flanagan [facility] Start: 03-30-2023 End: 03-30-2023 Patient encounter procedure Liset R ANU [facility] Start: 03-03-2022 End: 03-03-[address] EDNA GOLDSMITH Facility: Start: 12-01-2018 End: 12-02-2018 Patient encounter procedure LELE DWYER [facility] Procedures Date Procedure Procedure Detail Performing Clinician Start: 01-28-2025 Radex fingr minimum 2 views Hubert Pocos DO Work Phone: Start: 12-17-2024 Radex fingr minimum 2 views Hubert Pocos DO Work Phone: Start: 12-05-2024 Radex fingr minimum 2 views Hubert Pocos DO Work Phone: Start: 11-19-2024 Radex fingr minimum 2 views Sita Ordaz Pocos DO Work Phone: Start: 11-09-2024 Radex fingr minimum 2 views Sita Ordaz Pocos DO Work Phone: Start: 11-09-2024 HAND/UPPER EXTREMITY ARTHROCENTESIS Sita Ordaz Pocos DO Work Phone: Start: 03-26-2024 IGP,APTIMA HPV,AGE GDLN Liset Anu DO Work Phone: wisdom teeth Liset ANU Plan of Treatment Date Care Activity Detail Author Start: 06-05-2026 End: 06-05-2026 Patient encounter procedure 06/05/2026 8:30 AM EDT Procedure Visit [facility] [address] [place] [address] Liset Brennan, DO [address] [place], [place] [address] [facility] [place] JOHNSON Start: 05-27-2025 End: 05-27-2025 Patient encounter procedure 05/27/2025 9:50 AM EDT Office Visit NOMSharyn ALONSON [address] [place] [address] Liset Brennan, DO [address] [place] [address] Arrived NOMSharyn [place] OBFELIPAN Comment on above: Arrived Start: 04-15-2025 End: 04-15-2025 Patient encounter procedure 04/15/2025 9:00 AM EDT Office Visit [facility] BCP OB [address] [place] [id number] Liset Brennan, DO [address] [place] [address] [facility]CP OB Start: 01-18-2025 End: 01-18-2025 Patient encounter procedure 01/18/2025 9:00 AM EDT Office Visit [facility] [address] [place] [address] Sita Hollis, DO [address] [place] [address] [facility] Start: 12-17-2024 End: 12-17-2024 Patient encounter procedure 12/17/2024 9:00 AM EDT Office Visit [facility] [address] [address] Sita Hollis, DO [address] [place] [address] [facility] Start: 12-05-2024 End: 12-05-2024 Patient encounter procedure 12/05/2024 8:15 AM EDT Office Visit [facility] [address] [place] [address] Sita Hollis, DO [address] [place] [address] [facility] Start: 11-19-2024 End: 11-19-2024 Patient encounter procedure 11/19/2024 8:45 AM EDT Office Visit [facility] [address] [address] PocSita huang, DO [address] [place] [address] [facility] Start: 05-07-2024 End: 05-07-2024 Patient encounter procedure 05/07/2024 8:10 AM EDT Office Visit [facility] B[facility] OB [address] [place] [address] [place] [address] Liset Brennan DO [facility] [place] [address] [facility] BCP OB Cytology Cervical or vaginal smear or scraping study Pap Smear Pathology and Cytology Routine Well woman exam with routine gynecological exam Ordered: 05/27/2025 [facility] [employer] Work Phone: Comment on above: Ordered: 05/27/2025 Human papilloma viru s DNA [Presence] in Unspecified specimen by Probe with amplification HPV DNA probe, amplified Microbiology Routine Well woman exam with routine gynecological exam Ordered: 05/27/2025 [facility] [employer] Comment on above: Ordered: 05/27/2025 XR Finger - left 2 Views XR fing ers 2+ views left Imaging Routine Closed nondisplaced fracture of distal phalanx of left little finger, initial encounter 12/05/2024 7:50 AM EDT [facility] XR Finger - left 2 Views XR fing ers 2+ views left Imaging Routine Closed nondisplaced fracture of distal phalanx of left little finger, initial encounter 12/17/2024 8:05 AM EDT [employer] Work Phone: Immunizations Immunization Date Immunization Notes Care Provider Fa paige 11-09-2024 tetanus toxoid, redu robert diphtheria toxoid, and acellular pertussis vaccine, adsorbed; Translations: [Boostrix (Tdap)] Rai Flanagan [facility] 05-21-2020 influenza virus vaccine, unspecified formulation Navi Burger [facility] 04-23-2019 influenza virus vaccine, unspecified formulation Navi Burger [facility] 04-26-2018 influenza virus vaccine, unspecified formulation Navi Burger [facility] 05-28-2017 influenza virus vaccine, unspecified formulation Navi Burger [facility] 05-20-2016 influenza virus vaccine, unspecified formulation Navi Burger [facility] 08-06-2015 influenza, whole Navi marin [facility] 08-06-2015 tetanus toxoid, redu robert diphtheria toxoid, and acellular pertussis vaccine, adsorbed Navi Burger [facility] 08-22-2013 influenza virus vaccine, unspecified formulation Navi Burger [facility] 03-12-1999 measles, mumps and rubella virus vaccine Navi Del Vallepsey [facility] 04-18-1998 DTaP, unspecified formulation Navi Enriqueey [facility] 04-22-1995 DTP-Hib Navi Burger [facility] 04-22-1995 hepatitis B vaccine, pediatric or pediatric/adolescent dosage Navi Del Vallepsey [facility] 04-22-1995 measles, mumps and rubella virus vaccine Navi Del Vallepsey [facility] 10-08-1994 DTP-Hib Navi Burger [facility] 10-08-1994 hepatitis B vaccine, pediatric or pediatric/adolescent dosage Navi Del Vallepsey [facility] 03-17-1994 hepatitis B vaccine, pediatric or pediatric/adolescent dosage Navi Del Vallepsey [facility] 03-17-1994 Hib, unspecified formulation Navi Del Vallepsey [facility] Payers Date Payer Category Payer Worker's Compensation [employer] , [facility] [address] [place] [address] [id number] 2024 Unknown [id number] 2024 Worker's Compensation [id number] 2024 Private Health Insurance [id number] 2021 [facility] [employer] [facility] [id number] 2021 Unknown 1993 Unknown [id number] 2.16.840.1.058140.3.579.2 .593 1993 Unknown [id number] 2.16.840.1.580169.3.579.2 .727 1993 Unknown [id number] 2.16.840.1.592442.3.579.2 .72 1993 Unknown [id number] 2.16840.1.231041.3.579.2 .72 1993 Unknown [id number] 2.16.840.1.815393.3.579.2 .1993 Unknown [id number] 2.16.840.1.233421.3.579.2 .1258 1993 Unknown [id number] 2.16840.1.845611.3.579.2 .1258 1993 Unknown [id number] 2.16840.1.467721.3.579.2 .1258 1993 Unknown [id number] 2.16840.1.530937.3.579.2 .1258 1993 Unknown [id number] 2.16840.1.733061.3.579.2 .1258 1993 Unknown [id number] 2.840.1.262724.3.579.2 .1258 1993 Unknown [id number] 2.16840.1.909551.3.579.2 .1258 1993 Unknown [id number] 2.16840.1.114664.3.579.2 .1258 1993 Unknown [id number] 2.16840.1.399946.3.579.2 .1258 1993 Unknown [id number] 2.16840.1.698353.3.579.2 .1258 1993 Unknown [id number] 2.16840.1.371017.3.579.2 .1258 1993 Unknown [id number] 2.16840.1.461485.3.579.2 .1258 1993 Unknown [id number] 2.16840.1.693398.3.579.2 .1258 1993 Unknown [id number] 2.16840.1.398066.3.579.2 .1258 1993 Unknown [id number] 2.16.840.1.369761.3.579.2 .9 1993 Unknown [id number] 2.16.840.1.170388.3.579.2 .9 1993 Unknown [id number] 2.16.840.1.495407.3.579.2 .1258 1993 Unknown [id number] 2.16.840.1.800520.3.579.2 .1258 1993 Unknown [id number] 2.16.840.1.139682.3.579.2 .1258 1993 Unknown [id number] 2.16.840.1.879074.3.579.2 .727 1993 Unknown [id number] 2.16.840.1.178886.3.579.2 .727 1993 Unknown [id number] 2.16.840.1.165431.3.579.2 .727 1959 Unknown [id number] 1959 Unknown [id number] Social History Date Type Detail Facility Start: 06-17-2021 End: 03-20-2023 Tobacco smoking status Never smoked tobacco (finding) [facility] Start: 04-26-2023 End: 01-28-2025 Sex Assigned At Female [facility] Start: 03-26-2024 End: 05-27-2025 Alcoholic beverage intake Lifetime non-drinker (finding) [facility] Start: 04-26-2023 End: 01-28-2025 History of Social function [facility] Start: 03-20-2023 Alcohol Comment Caffeine: 2-3 cups/day soda [facility] Start: 1995 Sex assigned at Not on file [facility] Sexual Orientation [facility] Start: 05-06-2012 Sex Female (finding) [facility] Start: 10-20-2022 Tobacco smoking status Never [facility] Functional Status Date Assessment Result Facility 11-09-2024 Functional Status N/A [facility] 04-19-2023 Functional Status N/A [facility] Clinical Notes 03-30-2023 to 05-27-2025 Eloise Cruz NP - 05/27/2025 9:50 AM EDTKim Robison - 01/28/2025 9:15 AM EDTKim Robison - 12/17/2024 9:00 AM EDTKim Robison - 12/05/2024 8:15 AM EDTKim Robison - 11/19/2024 8:45 AM EDT Note Date & Type Note Facility 05-27-2025 History of Present illness Narrative Reason for Appointment: Patient ID: Luis Enrique Villa is a 29 y.o. female who [...] nursing note reviewed. Exam conducted with a director [facility] sclerosis center present. Vitals: Estimated body mass index is 19.27 kg/m as calculated from the following: Height as [...] by Eloise Cruz NP on behalf of: Liset Brennan DO [1] No Known Allergies [2] [...] EXTRACTION wisdom teeth documented in this encounter [facility] 05-24-2025 Hospital Discharge instructions Patient Education 05/24/2025 18:13:52 Rapid Strep Test Rapid Strep Test Why am I having this test? A rapid strep test is used to check for strep throat. Strep throat is a bacterial infection caused by the bacteria Streptococcus pyogenes. A rapid strep test is the quickest way to check if these bacteria are causing your sore throat. You may have this test if: You have throat pain or neck swelling and tenderness. You have a fever. You have a red throat with yellow or white spots. You experience loss of appetite. You have trouble breathing or painful swallowing. You have a rash. You are dehydrated. The test can be done at your health care provider's office. Results are usually ready in about 20 minutes. What is being tested? This test checks for the presence of the Streptococcus pyogenes bacteria. What kind of sample is taken? This test requires a sample of fluid from the back of your throat and tonsils. Your health care provider may hold down your tongue with a tongue depressor and use a swab to collect the sample. Your health care provider may collect a second sample at the same time. The second sample may be used for a throat culture. In a culture test, the sample is combined with a substance that encourages bacteria to grow. It takes longer to get the results of the throat culture test, but they are more accurate. A culture test can confirm the results from a rapid strep test, or it may show that the results were wrong. How are the results reported? Your test results will be reported as either positive or negative for the bacteria that cause strep throat. What do the results mean? Talk with your health care provider about what your results mean. In some cases, your health care provider may do more testing to confirm the results. If the result of your rapid strep test is negative, it means that: It is likely that you do not have strep throat. A virus may be causing your sore throat. If the result of your rapid strep test is positive, it means that: It is likely that you do have strep throat. You may have to take antibiotic medicine. Talk with your health care provider about what your results mean. Your health care provider may do a throat culture to confirm the results of the rapid strep test. The throat culture can also identify the different strains of bacteria that are present. Questions to ask your health care provider Ask your health care provider, or the department that is doing the test: When will my results be ready? How will I get my results? What are my treatment options? What other tests do I need? What are my next steps? Summary A rapid strep test is used to check for strep throat. Strep throat is a bacterial infection caused by the bacteria Streptococcus pyogenes. A rapid strep test is the quickest way to check if these bacteria are causing your sore throat. The test can be done at your health care provider's office. Results are usually ready in about 20 minutes. This test requires a sample of fluid from the back of your throat and tonsils. Your health care provider may hold down your tongue with a tongue depressor and use a swab to collect the sample. Your test results will be reported as either positive or negative for the bacteria that cause strep throat. This information is not intended to replace advice given to you by your health care provider. Make sure you discuss any questions you have with your health care provider. Document Revised: 11/17/2021 Document Reviewed: 11/17/2021 [employer] Patient Education 2023 [email or web address] 05/24/2025 18:13:52 Pharyngitis Pharyngitis Pharyngitis is inflammation of the throat (pharynx). It is a very common cause of sore throat. Pharyngitis can be caused by a bacteria, but it is usually caused by a virus. Most cases of pharyngitis get better on their own without treatment. What are the causes? This condition may be caused by: Infection by viruses (viral). Viral pharyngitis spreads easily from person to person (is contagious) through coughing, sneezing, and sharing of personal items or utensils such as cups, forks, spoons, and toothbrushes. Infection by bacteria (bacterial). Bacterial pharyngitis may be spread by touching the nose or face after coming in contact with the bacteria, or through close contact, such as kissing. Allergies. Allergies can cause buildup of mucus in the throat (post-nasal drip), leading to inflammation and irritation. Allergies can also cause blocked nasal passages, forcing breathing through the mouth, which dries and irritates the throat. What increases the risk? You are more likely to develop this condition if: You are 5 24 years old. You are exposed to crowded environments such as daycare, school, or dormitory living. You live in a cold climate. You have a weakened disease-fighting (immune) system. What are the signs or symptoms? Symptoms of this condition vary by the cause. Common symptoms of this condition include: Sore throat. Fatigue. Low-grade fever. Stuffy nose (nasal congestion) and cough. Headache. Other symptoms may include: Glands in the neck (lymph nodes) that are swollen. Skin rashes. Plaque-like film on the throat or tonsils. This is often a symptom of bacterial pharyngitis. Vomiting. Red, itchy eyes (conjunctivitis). Loss of appetite. Joint pain and muscle aches. Enlarged tonsils. How is this diagnosed? This condition may be diagnosed based on your medical history and a physical exam. Your health care provider will ask you questions about your illness and your symptoms. A swab of your throat may be done to check for bacteria (rapid strep test). Other lab tests may also be done, depending on the suspected cause, but these are rare. How is this treated? Many times, treatment is not needed for this condition. Pharyngitis usually gets better in 3 4 days without treatment. Bacterial pharyngitis may be treated with antibiotic medicines. Follow these instructions at home: Medicines Take qzhr-ovh-knzanxl and prescription medicines only as told by your health care provider. If you were prescribed an antibiotic medicine, take it as told by your health care provider. Do not stop taking the antibiotic even if you start to feel better. Use throat sprays to soothe your throat as told by your health care provider. Children can get pharyngitis. Do not give your child aspirin because of the association with Tyshawn's syndrome. Managing pain To help with pain, try: Sipping warm liquids, such as broth, herbal tea, or warm water. Eating or drinking cold or frozen liquids, such as frozen ice pops. Gargling with a mixture of salt and water 3 4 times a day or as needed. To make salt water, completely dissolve 1 tsp (3 6 g) of salt in 1 cup (237 mL) of warm water. Sucking on hard candy or throat lozenges. Putting a cool-mist humidifier in your bedroom at night to moisten the air. Sitting in the bathroom with the door closed for 5 10 minutes while you run hot water in the shower. General instructions Do not use any products that contain nicotine or tobacco. These products include cigarettes, chewing tobacco, and vaping devices, such as e-cigarettes. If you need help quitting, ask your health care provider. Rest as told by your health care provider. Drink enough fluid to keep your urine pale yellow. How is this prevented? To help prevent becoming infected or spreading infection: Wash your hands often with soap and water for at least 20 seconds. If soap and water are not available, use hand vessel captain. Do not touch your eyes, nose, or mouth with unwashed hands, and wash hands after touching these areas. Do not share cups or eating utensils. Avoid close contact with people who are sick. Contact a health care provider if: You have large, tender lumps in your neck. You have a rash. You cough up green, yellow-brown, or bloody mucus. Get help right away if: Your neck becomes stiff. You drool or are unable to swallow liquids. You cannot drink or take medicines without vomiting. You have severe pain that does not go away, even after you take medicine. You have trouble breathing, and it is not caused by a stuffy nose. You have new pain and swelling in your joints such as the knees, ankles, wrists, or elbows. These symptoms may represent a serious problem that is an emergency. Do not wait to see if the symptoms will go away. Get medical help right away. Call your local emergency services (911 in the [place] Do not drive yourself to the hospital. Summary Pharyngitis is redness, pain, and swelling (inflammation) of the throat (pharynx). While pharyngitis can be caused by a bacteria, the most common causes are viral. Most cases of pharyngitis get better on their own without treatment. Bacterial pharyngitis is treated with antibiotic medicines. This information is not intended to replace advice given to you by your health care provider. Make sure you discuss any questions you have with your health care provider. Document Revised: 10/21/2021 Document Reviewed: 10/21/2021 [employer] Patient Education 2023 [email or web address] Follow Up Care 05/24/2025 16:59:35 With:NONE, XXXX Address:Unknown When: Unknown [facility] 05-24-2025 Note Patient Education Infectious Disease Rapid Strep Test Why am I having this test? A rapid strep test is used to check for strep throat. Strep throat is a bacterial infection caused by the bacteria Streptococcus pyogenes. A rapid strep test is the quickest way to check if these bacteria are causing your sore throat. You may have this test if: ??? You have throat pain or neck swelling and tenderness. ??? You have a fever. ??? You have a red throat with yellow or white spots. ??? You experience loss of appetite. ??? You have trouble breathing or painful swallowing. ??? You have a rash. ??? You are dehydrated. The test can be done at your health care provider's office. Results are usually ready in about 20 minutes. What is being tested? This test checks for the presence of the Streptococcus pyogenes bacteria. What kind of sample is taken? This test requires a sample of fluid from the back of your throat and tonsils. Your health care provider may hold down your tongue with a tongue depressor and use a swab to collect the sample. Your health care provider may collect a second sample at the same time. The second sample may be used for a throat culture. ??? In a culture test, the sample is combined with a substance that encourages bacteria to grow. It takes longer to get the results of the throat culture test, but they are more accurate. ??? A culture test can confirm the results from a rapid strep test, or it may show that the results were wrong. How are the results reported? Your test results will be reported as either positive or negative for the bacteria that cause strep throat. What do the results mean? Talk with your health care provider about what your results mean. In some cases, your health care provider may do more testing to confirm the results. If the result of your rapid strep test is negative, it means that: ??? It is likely that you do not have strep throat. ??? A virus may be causing your sore throat. If the result of your rapid strep test is positive, it means that: ??? It is likely that you do have strep throat. ??? You may have to take antibiotic medicine. Talk with your health care provider about what your results mean. Your health care provider may do a throat culture to confirm the results of the rapid strep test. ??? The throat culture can also identify the different strains of bacteria that are present. Questions to ask your health care provider Ask your health care provider, or the department that is doing the test: ??? When will my results be ready? How will I get my results? What are my treatment options? What other tests do I need? What are my next steps? Summary ??? A rapid strep test is used to check for strep throat. Strep throat is a bacterial infection caused by the bacteria Streptococcus pyogenes. A rapid strep test is the quickest way to check if these bacteria are causing your sore throat. ??? The test can be done at your health care provider's office. Results are usually ready in about 20 minutes. ??? This test requires a sample of fluid from the back of your throat and tonsils. Your health care provider may hold down your tongue with a tongue depressor and use a swab to collect the sample. ??? Your test results will be reported as either positive or negative for the bacteria that cause strep throat. This information is not intended to replace advice given to you by your health care provider. Make sure you discuss any questions you have with your health care provider. Document Revised: 11/17/2021 Document Reviewed: 11/17/2021 [employer] Patient Education ? 2023 [email or web address] Pharyngitis Pharyngitis is inflammation of the throat (pharynx). It is a very common cause of sore throat. Pharyngitis can be caused by a bacteria, but it is usually caused by a virus. Most cases of pharyngitis get better on their own without treatment. What are the causes? This condition may be caused by: ??? Infection by viruses (viral). Viral pharyngitis spreads easily from person to person (is contagious) through coughing, sneezing, and sharing of personal items or utensils such as cups, forks, spoons, and toothbrushes. ??? Infection by bacteria (bacterial). Bacterial pharyngitis may be spread by touching the nose or face after coming in contact with the bacteria, or through close contact, such as kissing. ??? Allergies. Allergies can cause buildup of mucus in the throat (post-nasal drip), leading to inflammation and irritation. Allergies can also cause blocked nasal passages, forcing breathing through the mouth, which dries and irritates the throat. What increases the risk? You are more likely to develop this condition if: ??? You are 5?24 years old. ??? You are exposed to crowded environments such as daycare, school, or dormitory living. ??? You live in a cold climate. ??? You have a weakened diseas (more content not included)... [facility] 04-11-2025 Hospital Discharge instructions Patient Education 04/11/2025 09:29:10 Otitis Media, Adult, Deow-nz-Ihum Otitis Media, Adult Otitis media is a condition in which the middle ear is red and swollen (inflamed) and full of fluid. The middle ear is the part of the ear that contains bones for hearing as well as air that helps send sounds to the brain. The condition usually goes away on its own. What are the causes? This condition is caused by a blockage in the eustachian tube. This tube connects the middle ear to the back of the nose. It normally allows air into the middle ear. The blockage is caused by fluid or swelling. Problems that can cause blockage include: A cold or infection that affects the nose, mouth, or throat. Allergies. An irritant, such as tobacco smoke. Adenoids that have become large. The adenoids are soft tissue located in the back of the throat, behind the nose and the roof of the mouth. Growth or swelling in the upper part of the throat, just behind the nose (nasopharynx). Damage to the ear caused by a change in pressure. This is called barotrauma. What increases the risk? You are more likely to develop this condition if you: Smoke or are exposed to tobacco smoke. Have an opening in the roof of your mouth (cleft palate). Have acid reflux. Have problems in your body's defense system (immune system). What are the signs or symptoms? Symptoms of this condition include: Ear pain. Fever. Problems with hearing. Being tired. Fluid leaking from the ear. Ringing in the ear. How is this treated? This condition can go away on its own within 3 5 days. But if the condition is caused by germs (bacteria) and does not go away on its own, or if it keeps coming back, your doctor may: Give you antibiotic medicines. Give you medicines for pain. Follow these instructions at home: Take iuzu-ohb-jqiwdsh and prescription medicines only as told by your doctor. If you were prescribed an antibiotic medicine, take it as told by your doctor. Do not stop taking it even if you start to feel better. Keep all follow-up visits. Contact a doctor if: You have bleeding from your nose. There is a lump on your neck. You are not feeling better in 5 days. You feel worse instead of better. Get help right away if: You have pain that is not helped with medicine. You have swelling, redness, or pain around your ear. You get a stiff neck. You cannot move part of your face (paralysis). You notice that the bone behind your ear hurts when you touch it. You get a very bad headache. Summary Otitis media means that the middle ear is red, swollen, and full of fluid. This condition usually goes away on its own. If the problem does not go away, treatment may be needed. You may be given medicines to treat the infection or to treat your pain. If you were prescribed an antibiotic medicine, take it as told by your doctor. Do not stop taking it even if you start to feel better. Keep all follow-up visits. This information is not intended to replace advice given to you by your health care provider. Make sure you discuss any questions you have with your health care provider. Document Revised: 11/02/2021 Document Reviewed: 11/02/2021 [employer] Patient Education 2023 [email or web address] Follow Up Care 04/11/2025 08:58:11 With:NONE, XXXX Address:Unknown When: Unknown [facility] 04-11-2025 Note Patient Education ENT Otitis Media, Adult Otitis media is a condition in which the middle ear is red and swollen (inflamed) and full of fluid. The middle ear is the part of the ear that contains bones for hearing as well as air that helps send sounds to the brain. The condition usually goes away on its own. What are the causes? This condition is caused by a blockage in the eustachian tube. This tube connects the middle ear to the back of the nose. It normally allows air into the middle ear. The blockage is caused by fluid or swelling. Problems that can cause blockage include: ??? A cold or infection that affects the nose, mouth, or throat. ??? Allergies. ??? An irritant, such as tobacco smoke. ??? Adenoids that have become large. The adenoids are soft tissue located in the back of the throat, behind the nose and the roof of the mouth. ??? Growth or swelling in the upper part of the throat, just behind the nose (nasopharynx). ??? Damage to the ear caused by a change in pressure. This is called barotrauma. What increases the risk? You are more likely to develop this condition if you: ??? Smoke or are exposed to tobacco smoke. ??? Have an opening in the roof of your mouth (cleft palate). ??? Have acid reflux. ??? Have problems in your body's defense system (immune system). What are the signs or symptoms? Symptoms of this condition include: ??? Ear pain. ??? Fever. ??? Problems with hearing. ??? Being tired. ??? Fluid leaking from the ear. ??? Ringing in the ear. How is this treated? This condition can go away on its own within 3?5 days. But if the condition is caused by germs (bacteria) and does not go away on its own, or if it keeps coming back, your doctor may: ??? Give you antibiotic medicines. ??? Give you medicines for pain. Follow these instructions at home: ??? Take qngn-mmb-kfrhxed and prescription medicines only as told by your doctor. ??? If you were prescribed an antibiotic medicine, take it as told by your doctor. Do not stop taking it even if you start to feel better. ??? Keep all follow-up visits. Contact a doctor if: ??? You have bleeding from your nose. ??? There is a lump on your neck. ??? You are not feeling better in 5 days. ??? You feel worse instead of better. Get help right away if: ??? You have pain that is not helped with medicine. ??? You have swelling, redness, or pain around your ear. ??? You get a stiff neck. ??? You cannot move part of your face (paralysis). ??? You notice that the bone behind your ear hurts when you touch it. ??? You get a very bad headache. Summary ??? Otitis media means that the middle ear is red, swollen, and full of fluid. ??? This condition usually goes away on its own. ??? If the problem does not go away, treatment may be needed. You may be given medicines to treat the infection or to treat your pain. ??? If you were prescribed an antibiotic medicine, take it as told by your doctor. Do not stop taking it even if you start to feel better. ??? Keep all follow-up visits. This information is not intended to replace advice given to you by your health care provider. Make sure you discuss any questions you have with your health care provider. Document Revised: 11/02/2021 Document Reviewed: 11/02/2021 [employer] Patient Education ? 2023 [email or web address] [facility] 01-28-2025 History of Present illness Narrative Images from the original note were not included. Luis Enrique Villa is a 29 y.o. female presents with chief complaint of left little finger distal phalangeal fracture, nail bed laceration. HPI: Luis Enrique returns here today for repeat evaluation of her digit. She did no-show her last appointment. She does come back for further evaluation. She is doing better. She reports no new or interval symptoms. She has been advancing her activities. She is pleased with her result thus far. SUBJECTIVE: MEDICATIONS: Current Outpatient Medications Medication Instructions citalopram (CELEXA) 20 mg, Oral, Daily ISOtretinoin (Accutane) 40 MG capsule spironolactone (ALDACTONE) 50 mg, Daily ALLERGIES: No Known Allergies SURGICAL HISTORY: Past Surgical History: Procedure Laterality Date CERVICAL BIOPSY W/ LOOP ELECTRODE EXCISION 09/2016 LEEP LAPAROSCOPY DIAGNOSTIC / BIOPSY / ASPIRATION / LYSIS 05/20/2023 WISDOM TOOTH EXTRACTION wisdom teeth FAMILY HISTORY: Family History Problem Relation Name Age of Onset Sleep apnea Other Diabetes Other Cancer Other No Known Problems Daughter Breast cancer Maternal Grandmother Florina Breast cancer Paternal Grandmother Alexsandra lala Diabetes Paternal Grandmother Alexsandra lala SOCIAL HISTORY: Social History Tobacco Use Smoking status: Never Substance Use Topics Alcohol use: Never Comment: Caffeine: 2-3 cups/day soda Drug use: Never Depression: Not on file REVIEW OF SYMPTOMS: The review of systems, history and current medications list are all reviewed today. OBJECTIVE: Visit Vitals Ht 5' 1 Wt 97 lb BMI 18.33 kg/m OB Status Having periods Smoking Status Never BSA 1.38 m Physical Exam Her orthopedic exam here today of the left little finger shows no gross malalignment or deformity. The new nail is coming in over the top. Her neurocirculatory status is intact. Her pulses are otherwise brisk. Examination of the remainder of the left hand is benign. Examination of the right hand is benign. X-rays AP, lateral and oblique of the left little finger total of three views with permanent images are saved to the record does show increased healing and consolidation over the fracture site. Overall alignment is very appropriate. No evidence of new or further fracture or other osseous abnormality. ASSESSMENT AND PLAN: Assessment/Plan Left little finger distal phalangeal fracture, nail bed laceration. The findings are discussed. The treatment options are outlined. We did recommend supportive care and advancement of all activities. She does voice understanding of this. She will continue to progress as is tolerated. We will see her back here only on an as needed basis at this point. We did discuss her prognosis as being excellent. She does voice understanding. Cosigned by Sita Hollis DO at 01/29/2025 12:06 PM EDT documented in this encounter [facility] 12-17-2024 History of Present illness Narrative Images from the original note were not included. Luis Enrique Villa is a 28 y.o. female presents with chief complaint of left little finger distal phalanx fracture with nail bed laceration. HPI: Luis Enrique returns here today for repeat evaluation of her finger. She is doing well. She states it does hurt when she bumps it, but getting better. She did have her nails done and trimmed up a little bit which was okay for her. She is very concerned about the area still and does question whether she will have a problem with the nail plate in the future. SUBJECTIVE: MEDICATIONS: Current Outpatient Medications Medication Instructions citalopram (CELEXA) 20 mg, Oral, Daily ISOtretinoin (Accutane) 40 MG capsule spironolactone (ALDACTONE) 50 mg, Daily ALLERGIES: No Known Allergies SURGICAL HISTORY: Past Surgical History: Procedure Laterality Date CERVICAL BIOPSY W/ LOOP ELECTRODE EXCISION 09/2016 LEEP LAPAROSCOPY DIAGNOSTIC / BIOPSY / ASPIRATION / LYSIS 05/20/2023 WISDOM TOOTH EXTRACTION wisdom teeth FAMILY HISTORY: Family History Problem Relation Name Age of Onset Sleep apnea Other Diabetes Other Cancer Other No Known Problems Daughter Breast cancer Maternal Grandmother Florina Breast cancer Paternal Grandmother Alexsandra lala Diabetes Paternal Grandmother Alexsandra lala SOCIAL HISTORY: Social History Tobacco Use Smoking status: Never Substance Use Topics Alcohol use: Never Comment: Caffeine: 2-3 cups/day soda Drug use: Never Depression: Not on file REVIEW OF SYMPTOMS: The review of systems, history and current medications list are all reviewed today. OBJECTIVE: Visit Vitals Ht 5' 1 Wt 97 lb BMI 18.33 kg/m OB Status Having periods Smoking Status Never BSA 1.38 m Physical Exam Her orthopedic exam shows no gross malalignment or deformity. Gentle arc of motion is intact and more fluid here today. Her finger is otherwise benign. Her neurocirculatory status is overall grossly intact. Examination of the right hand is benign here today. Full arc of motion. Neurocirculatory status is grossly intact. X-rays are done AP, lateral and oblique of the left little finger, total of three views with permanent images are saved to the record and does show some increased consolidation and healing, no change in position or alignment of the fracture. No evidence of new or further fracture. The line is still visible. ASSESSMENT AND PLAN: Assessment/Plan Left little finger distal phalangeal fracture with nail bed laceration, status post closed reduction. The findings are discussed. We did outline the expectations with regard to time frame. She may come away from any further immobilization or splinting to the area. We did discuss the expectations moving forward. We will check her back in one month for a final check with x-ray. All of her questions are otherwise answered. Cosigned by Sita Hollis DO at 12/20/2024 7:43 AM EDT documented in this encounter [facility] 12-05-2024 History of Present illness Narrative Images from the original note were not included. Luis Enrique Villa is a 28 y.o. female presents with chief complaint of left little finger distal phalangeal fracture. HPI: Luis Enrique returns here today for repeat evaluation of her left little finger. She is doing well. She has been in the splint. The splint has hindered her. She denies any numbness or tingling. No fever or chills. She has been progressing her activities as is otherwise tolerated. SUBJECTIVE: MEDICATIONS: Current Outpatient Medications Medication Instructions citalopram (CELEXA) 20 mg, Oral, Daily spironolactone (ALDACTONE) 50 mg, Daily ALLERGIES: No Known Allergies SURGICAL HISTORY: Past Surgical History: Procedure Laterality Date CERVICAL BIOPSY W/ LOOP ELECTRODE EXCISION 09/2016 LEEP LAPAROSCOPY DIAGNOSTIC / BIOPSY / ASPIRATION / LYSIS 05/20/2023 WISDOM TOOTH EXTRACTION wisdom teeth FAMILY HISTORY: Family History Problem Relation Name Age of Onset Sleep apnea Other Diabetes Other Cancer Other No Known Problems Daughter Breast cancer Maternal Grandmother Florina Breast cancer Paternal Grandmother Alexsandra lala Diabetes Paternal Grandmother Alexsandra lala SOCIAL HISTORY: Social History Tobacco Use Smoking status: Never Substance Use Topics Alcohol use: Never Comment: Caffeine: 2-3 cups/day soda Drug use: Never Depression: Not on file REVIEW OF SYMPTOMS: The review of systems, history and current medications list are all reviewed today. OBJECTIVE: Visit Vitals Ht 5' 1 Wt 97 lb BMI 18.33 kg/m OB Status Having periods Smoking Status Never BSA 1.38 m Physical Exam Her orthopedic exam here today reveals gentle arc of motion of the digit without a lot of difficulty. She is, however, stiff both at the ring and little finger. Her neurocirculatory status is grossly intact. Examination of the x-ray done here today AP, lateral and oblique of the left little finger total of three views with permanent images are saved to the record does show what appears to be unchanged position or alignment of the fracture. No evidence of new or further fracture or other osseous abnormality. Overall healing is appropriate for time frame. ASSESSMENT AND PLAN: Assessment/Plan Left little finger tuft fracture, status post closed reduction. The findings are discussed. We did recommend supportive care for her and kiana splinting alone. We did discuss this versus Alumafoam splinting. The kiana splinting would be a nicer alternative. We will see her back here in another two weeks for recheck and review. We did discuss and offer the alternative of therapy. Right now, we will hold on anything of that magnitude. She does voice understanding. All of her questions are otherwise answered. Cosigned by Sita Hollis DO at 12/06/2024 11:58 AM EDT documented in this encounter [facility] 11-19-2024 History of Present illness Narrative Images from the original note were not included. Luis Enrique Villa is a 28 y.o. female presents with chief complaint of left little finger distal phalangeal fracture. HPI: Luis Enrique returns here today for repeat evaluation of her left little finger. She is doing well. No new or interval symptomatology. She has been advancing her activities as is otherwise tolerated. She reports no new or interval symptoms. She did catch her nail on a couple of things and this was painful. SUBJECTIVE: MEDICATIONS: Current Outpatient Medications Medication Instructions citalopram (CELEXA) 20 mg, Oral, Daily spironolactone (ALDACTONE) 50 mg, Oral, Daily tretinoin (Retin-A) 0.05 % cream 1 application , Nightly ALLERGIES: No Known Allergies SURGICAL HISTORY: Past Surgical History: Procedure Laterality Date CERVICAL BIOPSY W/ LOOP ELECTRODE EXCISION 09/2016 LEEP LAPAROSCOPY DIAGNOSTIC / BIOPSY / ASPIRATION / LYSIS 05/20/2023 WISDOM TOOTH EXTRACTION wisdom teeth FAMILY HISTORY: Family History Problem Relation Name Age of Onset Sleep apnea Other Diabetes Other Cancer Other No Known Problems Daughter SOCIAL HISTORY: Social History Tobacco Use Smoking status: Never Substance Use Topics Alcohol use: Never Comment: Caffeine: 2-3 cups/day soda Drug use: Never Depression: Not on file REVIEW OF SYMPTOMS: The review of systems, history and current medications list are all reviewed today. OBJECTIVE: Visit Vitals Ht 5' 1 Wt 97 lb BMI 18.33 kg/m OB Status Having periods Smoking Status Never BSA 1.38 m Physical Exam Her orthopedic exam reveals no gross malalignment or deformity. The nail is benign here today. Her neurocirculatory status is overall grossly intact. Range of motion is not assessed. No deformity. Examination of the contralateral right hand reveals arc of motion without difficulty. No tenderness. Neurocirculatory status is overall grossly intact. X-rays AP, lateral and oblique of the left little finger total of three views with permanent images are saved to the record does show unchanged position or alignment of the distal phalangeal fracture. No evidence of new or further fracture or other osseous abnormality. ASSESSMENT AND PLAN: Assessment/Plan Left little finger distal phalangeal fracture, nail bed injury. The findings are discussed. She would like to continue with the most protective device that would be offered. As such, we did place her back in a well padded, well molded ulnar gutter splint. This is Orthoglass. The ring finger is kiana splinted to the little. We will see her back here in two weeks for x-ray and recheck. All of her questions are otherwise answered. She is discharged in stable condition. Cosigned by Sita Hollis DO at 11/19/2024 4:05 PM EDT documented in this encounter [facility] 11-09-2024 Hospital Discharge instructions Patient Education 11/09/2024 13:08:25 Finger Fracture, Adult Finger Fracture, Adult A finger fracture is a break in any of the finger bones. What are the causes? The main cause of finger fractures is injury, such as from sports, a fall, or closing your finger in a drawer or door. What increases the risk? The following factors may make you more likely to develop this condition: Playing sports. Workplace activities that involve machinery. Having weak bones (osteoporosis). This condition makes your bones less dense and causes them to break easily. What are the signs or symptoms? The main symptoms of a fractured finger are pain, bruising, and swelling shortly after the injury. Other symptoms include: Stiffness. Exposed bones (compound fracture or open fracture), in severe cases. How is this diagnosed? This condition is diagnosed based on a physical exam, your medical history, and your symptoms. An X-ray will also be done to confirm the diagnosis. How is this treated? Treatment for this condition depends on the severity of the fracture. If the bones are still in place, the finger may be splinted to keep the finger still while it heals (immobilization). If several fingers are fractured, you may need a cast. A cast may be applied up to the elbow to keep your fingers and hand from moving. If the bones are out of place, your health care provider may move them back into place manually or surgically. You may also need to do physical therapy exercises to improve movement and strength in your finger. Follow these instructions at home: If you have a removable splint: Wear the splint as told by your health care provider. Remove it only as told by your health care provider. Check the skin around the splint every day. Tell your health care provider about any concerns. Loosen the splint if your fingers tingle, become numb, or turn cold and blue. Keep the splint clean and dry. If you have a nonremovable cast: Do not put pressure on any part of the cast until it is fully hardened. This may take several hours. Do not stick anything inside the cast to scratch your skin. Doing that increases your risk of infection. Check the skin around the cast every day. Tell your health care provider about any concerns. You may put lotion on dry skin around the edges of the cast. Do not put lotion on the skin underneath the cast. Keep the cast clean and dry. Bathing Do not take baths, swim, or use a hot tub until your health care provider approves. Ask your health care provider if you may take showers. If your splint or cast is not waterproof: ?Do not let it get wet. ?Cover it with a watertight covering when you take a bath or shower. Managing pain, stiffness, and swelling If directed, put ice on the injured area. To do this: ?If you have a removable splint, remove it as told by your health care provider. ?Put ice in a plastic bag. ?Place a towel between your skin and the bag, or between your cast and the bag. ?Leave the ice on for 20 minutes, 2 3 times a day. ?Remove the ice if your skin turns bright red. This is very important. If you cannot feel pain, heat, or cold, you have a greater risk of damage to the area. Move your fingers often to reduce stiffness and swelling. Raise (elevate) the injured area above the level of your heart while you are sitting or lying down. Activity Ask your health care provider if the medicine prescribed to you requires you to avoid driving or using machinery. Do physical therapy exercises as told by your health care provider. Return to your normal activities as told by your health care provider. Ask your health care provider what activities are safe for you. Ask your health care provider when it is safe to drive if you have a splint or cast on your finger. General instructions Do not use any products that contain nicotine or tobacco. These products include cigarettes, chewing tobacco, and vaping devices, such as e-cigarettes. These can delay bone healing. If you need help quitting, ask your health care provider. Take [id number] and prescription medicines only as told by your health care provider. Keep all follow-up visits. This is important. Contact a health care provider if: Your pain or swelling gets worse, even with treatment. You have trouble moving your finger. Get help right away if: Your finger becomes numb or blue. Summary A finger fracture is a break in any of the finger bones. Injury is the main cause of finger fractures. Treatment for this condition depends on the severity of the fracture. This information is not intended to replace advice given to you by your health care provider. Make sure you discuss any questions you have with your health care provider. Document Revised: 07/14/2021 Document Reviewed: 06/02/2021 [employer] Patient Education 2023 [email or web address] Follow Up Care 11/09/2024 11:15:14 With:Occupational Health: [facility] [place] [phone] Address:Unknown When:11/12/2024 12:11:12 With:Sita Hollis Address: [address] [place] [address] Business (1) When:11/12/2024 12:11:08 [facility] 11-09-2024 History of Present illness Narrative Associated Order(s): Hand / UE Inj/Asp Post-Procedure Diagnose(s): Closed nondisplaced fracture of distal phalanx of left little finger, initial encounter Hand / UE Inj/Asp on 11/09/2024 3:11 PM Indications: pain Medications: 8 mL lidocaine 1 % Outcome: tolerated well, no immediate complications Procedure, treatment alternatives, risks and benefits explained, specific risks discussed. Immediately prior to procedure a time out was called to verify the correct patient, procedure, equipment, clinical support tech and site/side marked as required. Patient was prepped and draped in the usual sterile fashion. Images from the original note were not included. Luis Enrique Villa is a 28 y.o. female presents with chief complaint of left little finger fracture. HPI: Luis Enrique is a 28-year-old right hand dominant white female who did sustain a work injury while at [employer] this morning. She was going to close the refrigerator, did have a lock loop on it. She got her finger caught in this, closed the door and felt the pain and difficulty. She was seen in the Emergency Room. She was a little bit concerned about the care in the Emergency Room. She was given a simple Alumafoam splint. She does have some deformity and as such, called here urgently. We did accommodate her for an add-on appointment here today. SUBJECTIVE: MEDICATIONS: Current Outpatient Medications Medication Instructions citalopram (CELEXA) 20 mg, Oral, Daily spironolactone (ALDACTONE) 50 mg, Oral, Daily traMADol (Ultram) 50 MG tablet May take 1 tablet (50 mg) by mouth every 6 (six) hours if needed for severe pain. May also take 2 tablets (100 mg) every 6 (six) hours if needed for severe pain. Do all this for 7 days. tretinoin (Retin-A) 0.05 % cream 1 application , Nightly ALLERGIES: No Known Allergies SURGICAL HISTORY: Past Surgical History: Procedure Laterality Date CERVICAL BIOPSY W/ LOOP ELECTRODE EXCISION 09/2016 LEEP LAPAROSCOPY DIAGNOSTIC / BIOPSY / ASPIRATION / LYSIS 05/20/2023 WISDOM TOOTH EXTRACTION wisdom teeth FAMILY HISTORY: Family History Problem Relation Name Age of Onset Sleep apnea Other Diabetes Other Cancer Other No Known Problems Daughter SOCIAL HISTORY: Social History Tobacco Use Smoking status: Never Substance Use Topics Alcohol use: Never Comment: Caffeine: 2-3 cups/day soda Drug use: Never Depression: Not on file REVIEW OF SYMPTOMS: The review of systems, history and current medications list are all reviewed today. OBJECTIVE: Visit Vitals Ht 5' 1 Wt 97 lb 9.6 oz BMI 18.44 kg/m OB Status Having periods Smoking Status Never BSA 1.38 m Physical Exam Her orthopedic exam here today reveals a pleasant 28-year-old white female in no acute distress. She does have displacement of her nail bed at the base of the digit. This is outside of the hyponychial fold. There is some slight deformity noted. Her finger is very petite in size. Her neurocirculatory status is overall grossly intact. The remaining digits of the left hand are benign. Examination of her right hand reveals full painless arc of motion. No deformity. X-rays AP, lateral and oblique of the left little finger from the Emergency Room does show an angulated distal phalangeal fracture, mid portion of the phalanx, extra articular. This is a volar angulation. No evidence of further fracture. The joint is located. Post reduction x-rays AP, lateral and oblique total of three views here today do show adequate reduction, correction of the deformity. No evidence of further fracture or other osseous abnormality. ASSESSMENT AND PLAN: Assessment/Plan Left little finger distal phalangeal fracture with nail bed laceration, dislodging of the nail plate. The findings are discussed. We did discuss watchful observation versus closed reduction and splint application in the office setting here today versus the same in the OR setting. After a lengthy discussion, she does opt for the reduction here in the office as she is very concerned about this. She is given a digital block with 1% Lidocaine plain. After adequate anesthesia, closed reduction maneuver is undertaken. Correction of the deformity is realized. This is also sterilely prepped and the nail is tucked back under the hyponychial fold. This did help correct the deformity as well. The patient is then sent for a post reduction x-ray which confirms adequate reduction in two planes with correction of the deformity. She is dressed with Xeroform, web roll and placed in a well padded, well molded ulnar gutter Orthoglass splint. This splint will remain in place. She will follow up in one week for x-ray and recheck out of the splint. She is discharged in stable condition here today. She is given Ultram 50 mg #20, no refills. She is also reminded to continue her antibiotic. Follow up letter sent to her primary care physician. Cosigned by Sita Hollis DO at 11/12/2024 7:41 AM EDT documented in this encounter [facility] 11-09-2024 Note ED Patient Education Note Orthopedics Finger Fracture, Adult A finger fracture is a break in any of the finger bones. What are the causes? The main cause of finger fractures is injury, such as from sports, a fall, or closing your finger in a drawer or door. What increases the risk? The following factors may make you more likely to develop this condition: ??? Playing sports. ??? Workplace activities that involve machinery. ??? Having weak bones (osteoporosis). This condition makes your bones less dense and causes them to break easily. What are the signs or symptoms? The main symptoms of a fractured finger are pain, bruising, and swelling shortly after the injury. Other symptoms include: ??? Stiffness. ??? Exposed bones (compound fracture or open fracture), in severe cases. How is this diagnosed? This condition is diagnosed based on a physical exam, your medical history, and your symptoms. An X-ray will also be done to confirm the diagnosis. How is this treated? Treatment for this condition depends on the severity of the fracture. If the bones are still in place, the finger may be splinted to keep the finger still while it heals (immobilization). If several fingers are fractured, you may need a cast. A cast may be applied up to the elbow to keep your fingers and hand from moving. If the bones are out of place, your health care provider may move them back into place manually or surgically. You may also need to do physical therapy exercises to improve movement and strength in your finger. Follow these instructions at home: If you have a removable splint: ??? Wear the splint as told by your health care provider. Remove it only as told by your health care provider. ??? Check the skin around the splint every day. Tell your health care provider about any concerns. ??? Loosen the splint if your fingers tingle, become numb, or turn cold and blue. ??? Keep the splint clean and dry. If you have a nonremovable cast: ??? Do not put pressure on any part of the cast until it is fully hardened. This may take several hours. ??? Do not stick anything inside the cast to scratch your skin. Doing that increases your risk of infection. ??? Check the skin around the cast every day. Tell your health care provider about any concerns. ??? You may put lotion on dry skin around the edges of the cast. Do not put lotion on the skin underneath the cast. ??? Keep the cast clean and dry. Bathing ??? Do not take baths, swim, or use a hot tub until your health care provider approves. Ask your health care provider if you may take showers. ??? If your splint or cast is not waterproof: ? Do not let it get wet. ? Cover it with a watertight covering when you take a bath or shower. Managing pain, stiffness, and swelling ??? If directed, put ice on the injured area. To do this: ? If you have a removable splint, remove it as told by your health care provider. ? Put ice in a plastic bag. ? Place a towel between your skin and the bag, or between your cast and the bag. ? Leave the ice on for 20 minutes, 2?3 times a day. ? Remove the ice if your skin turns bright red. This is very important. If you cannot feel pain, heat, or cold, you have a greater risk of damage to the area. ??? Move your fingers often to reduce stiffness and swelling. ??? Raise (elevate) the injured area above the level of your heart while you are sitting or lying down. Activity ??? Ask your health care provider if the medicine prescribed to you requires you to avoid driving or using machinery. ??? Do physical therapy exercises as told by your health care provider. ??? Return to your normal activities as told by your health care provider. Ask your health care provider what activities are safe for you. ??? Ask your health care provider when it is safe to drive if you have a splint or cast on your finger. General instructions ??? Do not use any products that contain nicotine or tobacco. These products include cigarettes, chewing tobacco, and vaping devices, such as e-cigarettes. These can delay bone healing. If you need help quitting, ask your health care provider. ??? Take krmp-yqs-kftnxvq and prescription medicines only as told by your health care provider. ??? Keep all follow-up visits. This is important. Contact a health care provider if: ??? Your pain or swelling gets worse, even with treatment. ??? You have trouble moving your finger. Get help right away if: ??? Your finger becomes numb or blue. Summary ??? A finger fracture is a break in any of the finger bones. ??? Injury is the main cause of finger fractures. ??? Treatment for this condition depends on the severity of the fracture. This information is not intended to replace advice given to you by your health care provider. Make sure you discuss any questions you have with your health care provider. Document Revised: 07/14/2021 Document Reviewed: 06/02/2021 E (more content not included)... [facility] 05-07-2024 History of Present illness Narrative Reason for Appointment: Patient ID: Luis Enrique Villa is a 28 y.o. female who presents for No chief complaint on file. Patient presents today via telephone call for a telehealth appointment. Patients Phone #: [phone] (mobile) Current Medications: has a current medication list which includes the following prescription(s): citalopram, spironolactone, and tretinoin. Medical History: Active Ambulatory Problems Diagnosis Date Noted Well woman exam with routine gynecological exam 03/26/2024 Mood changes 03/26/2024 Other acne 03/26/2024 Resolved Ambulatory Problems Diagnosis Date Noted No Resolved Ambulatory Problems Past Medical History: Diagnosis Date Benign cyst of left kidney Family History Problem Relation Name Age of Onset Sleep apnea Other Diabetes Other Cancer Other No Known Problems Daughter Social History Tobacco Use Smoking status: Never Smokeless tobacco: Not on file Substance Use Topics Alcohol use: Never Comment: Caffeine: 2-3 cups/day soda Drug use: Never Past Surgical History: Procedure Laterality Date CERVICAL BIOPSY W/ LOOP ELECTRODE EXCISION 09/2016 LEEP LAPAROSCOPY DIAGNOSTIC / BIOPSY / ASPIRATION / LYSIS 05/20/2023 WISDOM TOOTH EXTRACTION wisdom teeth No Known Allergies Vitals: Estimated body mass index is 17.38 kg/m as calculated from the following: Height as of 03/26/24: 5' 1 . Weight as of 03/26/24: 92 lb. BP: No LMP recorded. Assessment/Plan 0857 Provider called patient to review Celexa. Detailed message left for patient to call office. --ss 4:50pm Provider called patient back as patient returned call. Patient voiced she is doing better on medication, but feels as though she will benefit from an increase in dosage. Daren send increase of 20mg Celexa to pharmacy. Today's telehealth visit consisted of spending 5 minutes talking to patient on the phone. Documented by Emily Ching LPN on behalf of: Liset Brennan DO documented in this encounter [facility] 04-19-2023 Hospital Discharge instructions Patient Education 04/19/2023 13:13:38 Neck Exercises Neck Exercises Ask your health care provider which exercises are safe for you. Do exercises exactly as told by your health care provider and adjust them as directed. It is normal to feel mild stretching, pulling, tightness, or discomfort as you do these exercises. Stop right away if you feel sudden pain or your pain gets worse. Do not begin these exercises until told by your health care provider. Neck exercises can be important for many reasons. They can improve strength and maintain flexibility in your neck, which will help your upper back and prevent neck pain. Stretching exercises Rotation neck stretching 1.Sit in a chair or stand up. 2.Place your feet flat on the floor, shoulder-width apart. 3.Slowly turn your head (rotate) to the right until a slight stretch is felt. Turn it all the way to the right so you can look over your right shoulder. Do not tilt or tip your head. 4.Hold this position for 10 30 seconds. 5.Slowly turn your head (rotate) to the left until a slight stretch is felt. Turn it all the way to the left so you can look over your left shoulder. Do not tilt or tip your head. 6.Hold this position for 10 30 seconds. Repeat times. Complete this exercise times a day. Neck retraction 1.Sit in a sturdy chair or stand up. 2.Look straight ahead. Do not bend your neck. 3.Use your fingers to push your chin backward (retraction). Do not bend your neck for this movement. Continue to face straight ahead. If you are doing the exercise properly, you will feel a slight sensation in your throat and a stretch at the back of your neck. 4.Hold the stretch for 1 2 seconds. Repeat times. Complete this exercise times a day. Strengthening exercises Neck press 1.Lie on your back on a firm bed or on the floor with a pillow under your head. 2.Use your neck muscles to push your head down on the pillow and straighten your spine. 3.Hold the position as well as you can. Keep your head facing up (in a neutral position) and your chin tucked. 4.Slowly count to 5 while holding this position. Repeat times. Complete this exercise times a day. Isometrics These are exercises in which you strengthen the muscles in your neck while keeping your neck still (isometrics). 1.Sit in a supportive chair and place your hand on your forehead. 2.Keep your head and face facing straight ahead. Do not flex or extend your neck while doing isometrics. 3.Push forward with your head and neck while pushing back with your hand. Hold for 10 seconds. 4.Do the sequence again, this time putting your hand against the back of your head. Use your head and neck to push backward against the hand pressure. 5.Finally, do the same exercise on either side of your head, pushing sideways against the pressure of your hand. Repeat times. Complete this exercise times a day. Prone head lifts 1.Lie face-down (prone position), resting on your elbows so that your chest and upper back are raised. 2.Start with your head facing downward, near your chest. Position your chin either on or near your chest. 3.Slowly lift your head upward. Lift until you are looking straight ahead. Then continue lifting your head as far back as you can comfortably stretch. 4.Hold your head up for 5 seconds. Then slowly lower it to your starting position. Repeat times. Complete this exercise times a day. Supine head lifts 1.Lie on your back (supine position), bending your knees to point to the ceiling and keeping your feet flat on the floor. 2.Lift your head slowly off the floor, raising your chin toward your chest. 3.Hold for 5 seconds. Repeat times. Complete this exercise times a day. Scapular retraction 1.Stand with your arms at your sides. Look straight ahead. 2.Slowly pull both shoulders (scapulae) backward and downward (retraction) until you feel a stretch between your shoulder blades in your upper back. 3.Hold for 10 30 seconds. 4.Relax and repeat. Repeat times. Complete this exercise times a day. Contact a health care provider if: Your neck pain or discomfort gets worse when you do an exercise. Your neck pain or discomfort does not improve within 2 hours after you exercise. If you have any of these problems, stop exercising right away. Do not do the exercises again unless your health care provider says that you can. Get help right away if: You develop sudden, severe neck pain. If this happens, stop exercising right away. Do not do the exercises again unless your health care provider says that you can. This information is not intended to replace advice given to you by your health care provider. Make sure you discuss any questions you have with your health care provider. Document Revised: 01/19/2022 Document Reviewed: 01/19/2022 [employer] Patient Education 2022 [employer] 04/19/2023 13:13:38 Acute Torticollis, Adult Acute Torticollis, Adult Torticollis is a condition in which the muscles of the neck tighten (contract) abnormally, causing the neck to twist and the head to move into an unnatural position. Torticollis that develops suddenly is called acute torticollis. People with acute torticollis may have trouble turning their head. The condition can be painful and may range from mild to severe. What are the causes? This condition may be caused by: Sleeping in an awkward position. This is common. Extending or twisting the neck muscles beyond their normal position. An injury to the neck muscles. An infection. A tumor. Certain medicines. Long-lasting spasms of the neck muscles. In some cases, the cause may not be known. What increases the risk? You are more likely to develop this condition if: You have a condition associated with loose ligaments, such as Down syndrome. You have a brain condition that affects vision, such as strabismus. What are the signs or symptoms? The main symptom of this condition is tilting of the head to one side. Other symptoms include: Pain in the neck. Trouble turning the head from side to side or up and down. How is this diagnosed? This condition may be diagnosed based on: A physical exam. Your medical history. Imaging tests, such as: ?An X-ray. ?An ultrasound. ?A CT scan. ?An MRI. How is this treated? Treatment for this condition depends on what is causing the condition. Mild cases may go away without treatment. Treatment for more serious cases may include: Medicines or shots to relax the muscles. Other medicines, such as antibiotics, to treat the underlying cause. Wearing a soft neck collar. Physical therapy and stretching exercises to improve movement and strength in your neck. Neck massage. In severe cases, surgery may be needed to repair dislocated or broken bones or to treat nerves in the neck. Follow these instructions at home: Take fxzh-yai-ftdxsku and prescription medicines only as told by your health care provider. Do stretching exercises and massage your neck as told by your health care provider. If directed, apply heat to the affected area as often as told by your health care provider. Use the heat source that your health care provider recommends, such as a moist heat pack or a heating pad. ?Place a towel between your skin and the heat source. ?Leave the heat on for 20 30 minutes. ?Remove the heat if your skin turns bright red. This is especially important if you are unable to feel pain, heat, or cold. You have a greater risk of getting burned. If you wake up with torticollis after sleeping, check your bed or sleeping area. Look for lumpy pillows or unusual objects. Make sure your bed and sleeping area are comfortable. Keep all follow-up visits. This is important. Contact a health care provider if: You have a fever. Your symptoms do not improve or they get worse. Get help right away if: You have trouble breathing. You make loud, high-pitched sounds when you breathe, most often when you breathe in (stridor). You start to drool. You have trouble swallowing or pain when swallowing. You develop numbness or weakness in your hands or feet. You have changes in your speech, understanding, or vision. You are in severe pain. You cannot move your head or neck. These symptoms may represent a serious problem that is an emergency. Do not wait to see if the symptoms will go away. Get medical help right away. Call your local emergency services (911 in the [place] Do not drive yourself to the hospital. Summary Torticollis is a condition in which the muscles of the neck tighten (contract) abnormally, causing the neck to twist and the head to move into an unnatural position. Torticollis that develops suddenly is called acute torticollis. Treatment for this condition depends on what is causing the condition. Mild cases may go away without treatment. Do stretching exercises and massage your neck as told by your health care provider. You may also be instructed to apply heat to the area. Contact your health care provider if your symptoms do not improve or they get worse. This information is not intended to replace advice given to you by your health care provider. Make sure you discuss any questions you have with your health care provider. Document Revised: 11/21/2020 Document Reviewed: 11/21/2020 [employer] Patient Education 2022 [email or web address] Follow Up Care 04/19/2023 12:31:33 With:TO HYDE Address: [address] [place], [place] [id number]- Business (1) When:04/22/2023 13:05:39 Comments:Follow-up with your primary care provider in 3 to 5 days. If symptoms worsen, do not improve, or new symptoms arise please report back to emergency department for further evaluation. [facility] 04-19-2023 Evaluation + Plan note Extrac martha from: Title:ED Note Author:Adrien THOMPSON, Olegario Jameson te:04/19/23 Torticollis (M43.6: Torticol lis) Orders: acetaminophen-oxycodone, 1 tab(s), Oral, q6hr for 2 day(s), 8 tab(s), Refill(s) 0, [facility]/pharmacy #[id number], 154, cm, 04/19/23 12:44:00 EDT, Height/Length Dosing, 43, kg, 04/19/23 12:44:00 EDT, Weight Dosing methocarbamol, 1,000 mg = 2 tab(s), Oral, QID, X 7 day(s), # 56 tab(s), Refills(s) 0, Pharmacy: [facility]/pharmacy #[id number], 154, cm, 04/19/23 12:44:00 EDT, Height/Length Dosing, 43, kg, 04/19/23 12:44:00 EDT, Weight Dosing naproxen, 500 mg = 1 tab(s), Oral, BID, PRN for pain, # 20 tab(s), Refills(s) 0, Pharmacy: [facility]/pharmacy #[id number], 154, cm, 04/19/23 12:44:00 EDT, Height/Length Dosing, 43, kg, 04/19/23 12:44:00 EDT, Weight Dosing [facility]08-23-2023 Evaluation + Plan note Diagnostic Tests Pending * DHEAS 03/30/23 * FSH Level [facility]30[facility]23 [facility] Diagnosis Mood changes Unspecified episodic mood disorder documented in this encounter [facility]* Diagnosis Closed nondisplaced fracture of distal phalanx of left little finger, initial encounter- Primary Pain of finger of left hand documented in this encounter [facility]* Diagnosis Closed nondisplaced fracture of distal phalanx of left little finger, initial encounter- Primary documented in this encounter [facility]* Diagnosis Closed nondisplaced fracture of distal phalanx of left little finger, initial encounter- Primary documented in this encounter [facility]Evaluation [facility]* Diagnosis Closed nondisplaced fracture of distal phalanx of left little finger, initial encounter- Primary documented in this encounter [facility] HealthcareEvaluation note* Diagnosis Well woman exam with routine gynecological exam Routine gynecological examination Mood changes Unspecified episodic mood disorder [facility] Narrative No data available for this section [facility] No data available for this section [facility] No data available for this section [facility] Summary Purpose Family History No Family History Records FoundNo Family History Records FoundNo Family History Records FoundNo Family History Records FoundNo Family History Records FoundNo Family History Records Found No data available for this section No data available for this section No data available for this section No Family History Records FoundNo Family History Records FoundNo Family History Records FoundNo Family History Records FoundNo Family History Records Found No data available for this section No data available for this section No Family History Records Found Advance Directives No Advanced Directives Records FoundNo Advanced Directives Records FoundNo Advanced Directives Records FoundNo Advanced Directives Records FoundNo Advanced Directives Records FoundNo Advanced Directives Records FoundNo Advanced Directives Records FoundNo Advanced Directives Records FoundNo Advanced Directives Records FoundNo Advanced Directives Records FoundNo Advanced Directives Records FoundNo Advanced Directives Records Found Additional Source Comments INFORMATION SOURCE (unrecogn ized section and content) DATE CREATED AUTHOR 12/08/2018 [facility] DATE CREATED AUTHOR AUTHOR'S ORGANIZ ATION 03/10/2022 [facility] DATE CREATED AUTHOR AUTHOR'S ORGANIZ ATION 07/20/2024 [facility] DATE CREATED AUTHOR AUTHOR'S ORGANIZ ATION 11/30/2024 [facility] DATE CREATED AUTHOR AUTHOR'S ORGANIZ ATION 01/29/2025 [facility] DATE CREATED AUTHOR AUTHOR'S ORGANIZ ATION 05/26/2025 [facility] Patient Care team informatio n (unrecognized section and content) Personnel Name: TO HYDE MD Address: Address: [address] [place] [address] Name: Indigo LOPEZ CNP Address: Address: [address] [place] [address] Personnel Name: TO HYDE MD Address: Address: [address] [place] [address] Name: Indigo LOPEZ CNP Address: Address: [address] [place] [address] Personnel Name: NONE, XXXX Address: Address: [facility] Name: Indigo LOPEZ CNP Address: Address: [address] [place] [address] Personnel Name: NONE, XXXX Address: [place] Name: Indigo LOPEZ CNP Address: [address] [place] [address] Telecom: Personnel Name: NONE, XXXX Address: [place] Name: Indigo LOPEZ CNP Address: [address] [place] [address] Telecom: Personnel Name: NONE, XXXX Address: [place] Name: Indigo LOPEZ CNP Address: [address] [place] [address] Telecom: Personnel Name: NONE, XXXX Address: [place] Name: Indigo LOPEZ CNP Address: [address] [place] [address] Telecom: Reason for Visit (unrecogniz ed section and content) Reason Comments Fracture Reason Comments Pain Reason Comments Fracture Reason Comments Gynecologic Exam FOR RECORDS PERTAINING TO PATIENTS WHO ARE OR HAVE BEEN ENROLLED IN A CHEMICAL DEPENDENCY/SUBSTANCEABUSE PROGRAM, SOME INFORMATION MAY BE OMITTED. This clinical summary was aggregated from multiple sources. Caution should be exercised in using it in the provision of clinical care. This summary normalizes information from multiple sources, and as a consequence, information in this document may materially change the coding, format and clinical context of patient data. In addition, data may be omitted in some cases. CLINICAL DECISIONS SHOULD BE BASED ON THE PRIMARY CLINICAL RECORDS. [facility] provides no warranty or guarantee of the accuracy or completeness of information in this document.
== END 2025-05-27 13:24 | disposition home or self-care (01) ==
LOC: LAB 13:23
PROVIDERS: Visit Provider Obstetrics & Gynecology
DX: Z01.419 Encounter for gynecological examination (general) (routine) without abnormal findings (principal)
CPT/HCPCS: 87624; 88175